=== PATIENT | male | born 1940 | race Caucasian/White ===

== ENCOUNTER 2016-05-13 14:34 | Outpatient (CLI) | payer MEDICARE, MEDICAID | END 2016-05-13 14:35 | disposition home or self-care (01) | DX: M51.36 Other intervertebral disc degeneration, lumbar region (principal); M41.86 Other forms of scoliosis, lumbar region ==

== ENCOUNTER 2016-05-20 08:00 | Outpatient (CLI) | payer MEDICARE, MEDICAID | END 2016-05-20 08:01 | disposition home or self-care (01) | DX: E78.2 Mixed hyperlipidemia (principal); I10 Essential (primary) hypertension; E66.01 Morbid (severe) obesity due to excess calories; J44.9 Chronic obstructive pulmonary disease, unspecified ==

== ENCOUNTER 2017-03-15 08:00 | Outpatient (CLI) | payer MEDICARE, MEDICAID ==
[2017-03-15 19:14] LABS: ALBUMIN 4.1 g/dL (3.2-5.5); ALBUMIN/GLOBULIN RATIO 1.4 (1.0-2.2); ALKALINE PHOSPHATASE 71 IU/L (42-121); ALT ALANINE AMINOTRANSFERASE 15 IU/L (10-60); AST ASPARTATE AMINOTRANSFERASE 17 IU/L (10-42); BILIRUBIN,TOTAL 0.7 mg/dL (0.2-1.0); BUN - BLOOD UREA NITROGEN 10 mg/dL (6-20); CALCIUM 8.7 mg/dL (8.5-10.3); CARBON DIOXIDE - CO2 30 mmol/L (21-32); CHLORIDE 105 mmol/L (101-111); CHOLESTEROL 143 mg/dL; GFR - MDRD 73 (>89); GLUCOSE 107 mg/dL (70-100); HDL CHOLESTEROL 47 mg/dL; LDL CHOLESTEROL,CALCULATED 83 mg/dL; LDL/HDL RATIO 1.8 (<3.6); SODIUM 141 mmol/L (135-145); TOTAL PROTEIN 7.1 g/dL (6.7-8.2); VLDL CHOLESTEROL 13 mg/dL
== END 2017-03-15 08:01 | disposition home or self-care (01) ==
LOC: LAB.N 08:00
PROVIDERS: ATTEND Family Medicine
DX: F17.210 Nicotine dependence, cigarettes, uncomplicated (principal); E78.2 Mixed hyperlipidemia; I10 Essential (primary) hypertension
CPT/HCPCS: 36415; 80053; 80061

== ENCOUNTER 2018-01-03 10:17 | Outpatient (CLI) | payer MEDICARE, MEDICAID ==
[2018-01-03 12:30] LABS: CALCIUM 8.7 mg/dL (8.5-10.3); CREATININE 1.2 mg/dL (0.6-1.2)
== END 2018-01-03 10:18 | disposition home or self-care (01) ==
LOC: LAB.N 10:17
PROVIDERS: ATTEND Family Medicine
DX: I10 Essential (primary) hypertension (principal)
CPT/HCPCS: 36415; 80048

== ENCOUNTER 2018-08-28 07:38 | Outpatient (CLI) | payer MEDICARE, MEDICAID ==
[2018-08-28 15:57] LABS: BASOPHILS % (AUTO) 0.6 %; EOSINOPHILS # (AUTO) 0.2 10^3/uL (0.0-0.7); EOSINOPHILS % (AUTO) 2.8 %; HGB - HEMOGLOBIN 14.9 g/dL (14.0-18.0); LYMPHOCYTES # (AUTO) 2.2 10^3/uL (1.5-3.5); LYMPHOCYTES % (AUTO) 33.9 %; MEAN CORPUSCULAR HEMOGLOBIN 31.9 pg (27.0-31.0); MEAN CORPUSCULAR HGB CONC 33.3 g/dL (32.0-36.0); MEAN CORPUSCULAR VOLUME 95.9 fL (80.0-94.0); MEAN PLATELET VOLUME 9.6 fL (7.4-11.4); MONOCYTES # (AUTO) 0.5 10^3/uL (0.0-1.0); MONOCYTES % (AUTO) 7.8 %; NEUTROPHILS # (AUTO) 3.5 10^3/uL (1.5-6.6); NEUTROPHILS % (AUTO) 54.9 %; PLT - PLATELET COUNT 129 10^3/uL (130-450); RED BLOOD COUNT 4.66 10^6/uL (4.70-6.10); RED CELL DISTRIBUTION WIDTH 14.8 % (12.0-15.0); WHITE BLOOD COUNT 6.4 x10^3/uL (4.8-10.8)
[2018-08-28 16:08] LABS: ALBUMIN 3.9 g/dL (3.2-5.5); ALBUMIN/GLOBULIN RATIO 1.2 (1.0-2.2); ALKALINE PHOSPHATASE 55 IU/L (42-121); ALT ALANINE AMINOTRANSFERASE 13 IU/L (10-60); AST ASPARTATE AMINOTRANSFERASE 13 IU/L (10-42); BILIRUBIN,TOTAL 0.9 mg/dL (0.2-1.0); BUN - BLOOD UREA NITROGEN 15 mg/dL (6-20); CALCIUM 8.4 mg/dL (8.5-10.3); CARBON DIOXIDE - CO2 26 mmol/L (21-32); CHLORIDE 106 mmol/L (101-111); CHOL/HDL RATIO 2.5 (<5.0); CHOLESTEROL 104 mg/dL; GFR - MDRD 73 (>89); GLUCOSE 111 mg/dL (70-100); HDL CHOLESTEROL 41 mg/dL; LDL CHOLESTEROL,CALCULATED 51 mg/dL; LDL/HDL RATIO 1.2 (<3.6); SODIUM 140 mmol/L (135-145); TOTAL PROTEIN 7.1 g/dL (6.7-8.2); VLDL CHOLESTEROL 12 mg/dL
== END 2018-08-28 07:39 | disposition home or self-care (01) ==
LOC: LAB.WCP 07:38
PROVIDERS: ATTEND Family Medicine
DX: I10 Essential (primary) hypertension (principal); E78.2 Mixed hyperlipidemia
CPT/HCPCS: 36415; 80053; 80061; 83721; 84443; 85025

== ENCOUNTER 2019-02-13 12:55 | Outpatient (CLI) | payer MEDICARE, MEDICAID ==
[2019-02-13 18:39] LABS: BASOPHILS # (AUTO) 0.1 10^3/uL (0.0-0.1); BASOPHILS % (AUTO) 0.8 %; EOSINOPHILS # (AUTO) 0.2 10^3/uL (0.0-0.7); EOSINOPHILS % (AUTO) 2.9 %; LYMPHOCYTES # (AUTO) 2.7 10^3/uL (1.5-3.5); LYMPHOCYTES % (AUTO) 35.5 %; MEAN CORPUSCULAR HEMOGLOBIN 31.7 pg (27.0-31.0); MEAN PLATELET VOLUME 11.6 fL (7.4-11.4); MONOCYTES # (AUTO) 0.6 10^3/uL (0.0-1.0); MONOCYTES % (AUTO) 8.2 %; NEUTROPHILS % (AUTO) 52.2 %; PLT - PLATELET COUNT 153 10^3/uL (130-450); RED BLOOD COUNT 5.05 10^6/uL (4.70-6.10); RED CELL DISTRIBUTION WIDTH 15.3 % (12.0-15.0); WHITE BLOOD COUNT 7.7 x10^3/uL (4.8-10.8)
[2019-02-13 19:00] LABS: ALBUMIN 4.2 g/dL (3.2-5.5); ALBUMIN/GLOBULIN RATIO 1.4 (1.0-2.2); BILIRUBIN,TOTAL 1.2 mg/dL (0.2-1.0); CALCIUM 8.6 mg/dL (8.5-10.3); CREATININE 1.2 mg/dL (0.6-1.2); TOTAL PROTEIN 7.3 g/dL (6.7-8.2)
== END 2019-02-13 23:59 | disposition home or self-care (01) ==
LOC: LAB.WCP 12:55
PROVIDERS: ATTEND Family Medicine
DX: I10 Essential (primary) hypertension (principal); J44.9 Chronic obstructive pulmonary disease, unspecified; G89.29 Other chronic pain; M54.5 Low back pain
CPT/HCPCS: 36415; 80053; 85025

== ENCOUNTER 2019-03-14 16:37 | Emergency (ER) | payer MEDICARE, MEDICAID ==
--- NOTE | 2019-03-14 17:33 | XRAY Report ---
Reason: shortness of breath Procedure Date: 03/14/2019 Accession Number: [id number] / [id number] Procedure: XR - Chest 2 View X-Ray CPT Code: 60039 Final Report FULL RESULT: EXAM: CHEST RADIOGRAPHY EXAM DATE: 03/14/2019 05:07 PM. CLINICAL HISTORY: Shortness of breath. COMPARISON: LUMBAR SPINE COMPLETE 05/13/2016 2:51 PM. TECHNIQUE: 2 views. FINDINGS: Lungs/Pleura: No consolidation, airspace disease, pleural effusion or pneumothorax. Hyperinflated lungs. Mediastinum: Heart and mediastinal contours are unremarkable. Other: Severe T12 compression fracture, age indeterminate. Mild anterior wedging of the vertebral bodies at multiple levels in the thoracic spine, appear chronic. IMPRESSION: Hyperinflated lungs. COPD could be present. No acute cardiopulmonary disease seen. New severe T12 compression fracture, age indeterminate. RADIA
--- NOTE | 2019-03-14 18:42 | ED Physician Documentation ---
History of Present Illness - Stated complaint Stated Complaint: SOA, CONGESTION - Chief complaint Chief Complaint: Resp - History obtained from History obtained from: Patient (78-year-old gentleman with COPD on Advair and Spiriva sprint presents with 1 week of productive cough, increasing shortness of breath. No pedal edema. The cough is productive of white thick sputum. No fevers.) Review of Systems Constitutional: denies: Fever, Chills Nose: reports: Rhinorrhea / runny nose, Congestion Throat: denies: Sore throat Cardiac: denies: Chest pain / pressure, Palpitations Respiratory: reports: Dyspnea, Cough. denies: Hemoptysis, Wheezing GI: denies: Abdominal Pain PD PAST MEDICAL HISTORY - Past Medical History Cardiovascular: Congestive heart failure, Hypertension, High cholesterol Respiratory: COPD, Emphysema, Pneumonia - Past Surgical History General: Hiatal hernia repair HEENT: Tonsil/Adenoidectomy - Present Medications Home Medications: Ambulatory Orders Medication Instructions Recorded Confirmed Albuterol [Ventolin Hfa] 1 puffs PO DAILY 12/17/14 12/17/14 Aspirin 81 mg PO DAILY 12/17/14 12/17/14 Baclofen 10 mg PO DAILY 12/17/14 12/17/14 Carvedilol [Coreg] 6.25 mg PO BID 12/17/14 12/17/14 Cephalexin [Keflex] 500 mg PO TID #20 capsule 12/17/14 Fluticasone/Salmeterol [Advair 12/17/14 12/17/14 100-50 Diskus] Ibuprofen 600 mg PO BID #15 tablet 12/17/14 Lisinopril [Zestril] 10 mg PO DAILY 12/17/14 12/17/14 Oxycodone HCl/Acetaminophen 1 each PO Q6H PRN #20 tablet 12/17/14 [Percocet 5-325 mg Tablet] Simvastatin [Zocor] 20 mg PO DAILY 12/17/14 12/17/14 Tiotropium [place] [Spiriva] 18 mcg PO DAILY 12/17/14 12/17/14 oxyCODONE/ACET 5/325 [Percocet 5 1 tab PO DAILY 12/17/14 12/17/14 mg/325 mg] Doxycycline Hyclate 100 mg PO BID #20 capsule 03/14/19 predniSONE [Deltasone] 20 mg PO [id number] #21 tab 03/14/19 - Allergies Allergies/Adverse Reactions: Allergies Allergy/AdvReac Type Severity Reaction Status Date / Time No Known Drug Allergies Allergy Verified 03/14/19 16:45 - Social History Does the pt smoke?: Yes Smoking Status: Current every day smoker Does the pt drink ETOH?: No Does the pt have substance abuse?: No PD ED PE NORMAL - Vitals Vital signs reviewed: Yes - General General: Alert and oriented X 3, No acute distress - HEENT HEENT: PERRL, EOMI - Neck Neck: Supple, no meningeal sign, No bony TTP - Cardiac Cardiac: RRR, No murmur - Respiratory Respiratory: Other (Wheezy and rhonchorous throughout but nonlabored) - Extremities Extremities: No edema, No calf tenderness / cord - Neuro Neuro: Alert and oriented X 3, Normal speech Results - Vitals Vitals: Vital Signs - 24 hr 03/14/19 03/14/19 03/14/19 16:45 18:53 19:09 Temperature 36.6 C Heart Rate 87 90 89 Respiratory 20 22 22 Rate Blood Pressure 157/95 H 151/99 H O2 Saturation 96 96 03/14/19 19:27 Temperature Heart Rate 92 Respiratory 20 Rate Blood Pressure O2 Saturation Oxygen O2 Source Room air - Rads (name of study) 2v chest Radiology: EMP read contemporaneously (Hyperinflated lungs with COPD, no acute disease, new T12 compression fracture) PD MEDICAL DECISION MAKING - ED course ED course: 78-year-old gentleman presents with parents COPD exacerbation. No evidence of CHF. He is administered a DuoNeb, prednisone, and doxycycline here. 78-year-old gentleman with COPD exacerbation, no evidence of other cardiac or pulmonary disease, feeling better after divided nebs and the steroids and doxycycline. No respiratory distress. No tachycardia. No hypoxemia. Departure - Departure Clinical Impression: COPD exacerbation Condition: Good Record reviewed to determine appropriate education?: Yes Instructions: COPD Dc, ED Smoking Cessation Prescriptions: Doxycycline Hyclate 100 mg PO BID #20 capsule predniSONE [Deltasone] 20 mg PO [id number] #21 tab Comments: On your x-ray besides evidence of COPD we also sized T12 compression fracture, unclear when this happened but you can talk with your doctor about it. Call your doctor to arrange a follow-up appointment, make the next available appointment. In the interim, return anytime if worse or if new symptoms develop.
[2019-03-14] MEDS ORDERED: IPRATROPIUM/ALBUTEROL 3 ML NEB INH STA (18:45)
[2019-03-14] MEDS ORDERED: DOXYCYCLINE 100 MG TABLET PO STA (18:45)
[2019-03-14] MEDS ORDERED: predniSONE 20 MG TABLET PO STA (18:45)
[2019-03-14] MEDS ORDERED: ALBUTEROL NEB 2.5 MG/3 ML INH STA ×2 (19:18→19:50)
[2019-03-14 20:04] VITALS: BP 115/83
== END 2019-03-14 20:24 | disposition home or self-care (01) ==
LOC: ED 16:37
DX: J44.1 Chronic obstructive pulmonary disease with (acute) exacerbation (principal); F17.200 Nicotine dependence, unspecified, uncomplicated; M48.54XA Collapsed vertebra, not elsewhere classified, thoracic region, initial encounter for fracture; I10 Essential (primary) hypertension; Z79.82 Long term (current) use of aspirin
CPT/HCPCS: 71046; 94640; 99284; A9270; J7512

== ENCOUNTER 2019-05-16 18:25 | Outpatient (CLI) | payer MEDICARE, MEDICAID | END 2019-05-16 18:26 | disposition short-term general hospital (02) | LOC: EMS 18:25 | PROVIDERS: ATTEND Surgery | DX: I21.4 Non-ST elevation (NSTEMI) myocardial infarction (principal) | CPT/HCPCS: A0425; A0426 ==

== ENCOUNTER 2019-05-29 13:45 | Outpatient (CLI) | payer MEDICARE, MEDICAID ==
[2019-05-29 18:35] LABS: BASOPHILS # (AUTO) 0.1 10^3/uL (0.0-0.1); BASOPHILS % (AUTO) 0.7 %; EOSINOPHILS # (AUTO) 0.2 10^3/uL (0.0-0.7); EOSINOPHILS % (AUTO) 3.3 %; HGB - HEMOGLOBIN 14.5 g/dL (14.0-18.0); LYMPHOCYTES # (AUTO) 1.6 10^3/uL (1.5-3.5); MEAN CORPUSCULAR HEMOGLOBIN 32.5 pg (27.0-31.0); MEAN CORPUSCULAR HGB CONC 32.6 g/dL (32.0-36.0); MEAN CORPUSCULAR VOLUME 99.8 fL (80.0-94.0); MEAN PLATELET VOLUME 11.7 fL (7.4-11.4); MONOCYTES # (AUTO) 0.6 10^3/uL (0.0-1.0); MONOCYTES % (AUTO) 8.3 %; NEUTROPHILS # (AUTO) 4.8 10^3/uL (1.5-6.6); NEUTROPHILS % (AUTO) 65.3 %; PLT - PLATELET COUNT 164 10^3/uL (130-450); RED BLOOD COUNT 4.46 10^6/uL (4.70-6.10); RED CELL DISTRIBUTION WIDTH 15.9 % (12.0-15.0); WHITE BLOOD COUNT 7.4 x10^3/uL (4.8-10.8)
[2019-05-29 18:46] LABS: ALBUMIN 3.8 g/dL (3.2-5.5); ALBUMIN/GLOBULIN RATIO 1.3 (1.0-2.2); BILIRUBIN,TOTAL 0.6 mg/dL (0.2-1.0); CALCIUM 8.6 mg/dL (8.5-10.3); TOTAL PROTEIN 6.7 g/dL (6.7-8.2)
== END 2019-05-29 23:59 | disposition home or self-care (01) ==
LOC: LAB.WCP 13:45
PROVIDERS: ATTEND Family Medicine
DX: I25.10 Atherosclerotic heart disease of native coronary artery without angina pectoris (principal); I48.91 Unspecified atrial fibrillation
CPT/HCPCS: 36415; 80053; 85025

== ENCOUNTER 2019-06-03 13:56 | Emergency (ER) | payer MEDICARE, MEDICAID ==
[2019-06-03 14:03] VITALS: BP 148/107
[2019-06-03] MEDS ORDERED: HYDROcod/ACETAM 5/325 MG TABLET PO STA (14:14)
[2019-06-03] MEDS ORDERED: GABAPENTIN 100 MG CAPSULE PO STA (14:15)
--- NOTE | 2019-06-03 14:17 | ED Physician Documentation ---
History of Present Illness - Stated complaint Stated Complaint: MALE - Chief complaint Chief Complaint: General - History obtained from History obtained from: Patient (Burning painful rash on the left thigh and groin for about a week. No fevers or chills.) Review of Systems Constitutional: denies: Fever, Chills GI: denies: Abdominal Pain, Nausea, Vomiting : denies: Dysuria, Frequency PD PAST MEDICAL HISTORY - Past Medical History Cardiovascular: Congestive heart failure, Hypertension, High cholesterol Respiratory: COPD, Emphysema, Pneumonia - Past Surgical History Past Surgical History: Yes General: Hiatal hernia repair Ortho: Hip replacement, Knee replacement, Arthroscopic surgery HEENT: Tonsil/Adenoidectomy - Present Medications Home Medications: Ambulatory Orders Medication Instructions Recorded Confirmed Albuterol [Ventolin Hfa] 1 puffs PO DAILY 12/17/14 12/17/14 Aspirin 81 mg PO DAILY 12/17/14 12/17/14 Baclofen 10 mg PO DAILY 12/17/14 12/17/14 Carvedilol [Coreg] 6.25 mg PO BID 12/17/14 12/17/14 Cephalexin [Keflex] 500 mg PO TID #20 capsule 12/17/14 Fluticasone/Salmeterol [Advair 12/17/14 12/17/14 100-50 Diskus] Ibuprofen 600 mg PO BID #15 tablet 12/17/14 Lisinopril [Zestril] 10 mg PO DAILY 12/17/14 12/17/14 Oxycodone HCl/Acetaminophen 1 each PO Q6H PRN #20 tablet 12/17/14 [Percocet 5-325 mg Tablet] Simvastatin [Zocor] 20 mg PO DAILY 12/17/14 12/17/14 Tiotropium [place] [Spiriva] 18 mcg PO DAILY 12/17/14 12/17/14 oxyCODONE/ACET 5/325 [Percocet 5 1 tab PO DAILY 12/17/14 12/17/14 mg/325 mg] Doxycycline Hyclate 100 mg PO BID #20 capsule 03/14/19 predniSONE [Deltasone] 20 mg PO [id number] #21 tab 03/14/19 Acyclovir 800 mg PO 5XD #50 tablet 06/03/19 Gabapentin [Neurontin] 300 mg PO TID #30 capsule 06/03/19 Hydrocodone/Acetaminophen 1 - 2 each PO Q6H PRN #14 tablet 06/03/19 [Hydrocodon-Acetaminophen 5-325] predniSONE [Deltasone] 20 mg PO [id number] #21 tab 06/03/19 - Allergies Allergies/Adverse Reactions: Allergies Allergy/AdvReac Type Severity Reaction Status Date / Time No Known Drug Allergies Allergy Verified 05/16/19 12:32 - Social History Does the pt smoke?: Yes Smoking Status: Current every day smoker Does the pt drink ETOH?: No Does the pt have substance abuse?: No PD ED PE NORMAL - Vitals Vital signs reviewed: Yes - General General: Alert and oriented X 3, No acute distress - Abdomen Abdomen: Soft, Non tender - Derm Derm: Other (He has herpes zoster on the anterior left thigh radiating towards the groin) - Neuro Neuro: Alert and oriented X 3, Normal speech Results - Vitals Vitals: Vital Signs - 24 hr 06/03/19 14:01 Temperature 36.8 C Heart Rate 93 Respiratory 16 Rate Blood Pressure 148/107 H O2 Saturation 99 Oxygen O2 Source Room air Departure - Departure Disposition: Home, Self Care Clinical Impression: Herpes zoster Qualifiers: Herpes zoster complications: without complications Qualified Code(s): B02.9 - Zoster without complications Condition: Good Record reviewed to determine appropriate education?: Yes Instructions: ED Shingles Prescriptions: Acyclovir 800 mg PO 5XD #50 tablet Gabapentin [Neurontin] 300 mg PO TID #30 capsule Hydrocodone/Acetaminophen [Hydrocodon-Acetaminophen 5-325] 1 - 2 each PO Q6H PRN #14 tablet PRN Reason: pain predniSONE [Deltasone] 20 mg PO [id number] #21 tab Comments: The gabapentin and hydrocodone should help with the burning and the pain. The acyclovir may help it go away faster and the steroids may help prevent recurrences of pain. You need to have your INR checked frequently while on these medications as they may make your warfarin levels go high. Plan the next INR check for Tuesday with your Dr. Soler. Do not drink or drive while taking narcotic pain medication. Note that many narcotic pain relievers also contain Tylenol/acetaminophen. Please ensure that your total dose of acetaminophen from all sources does not exceed 3 g (3000 mg) per day. You may get constipated while on this medication. Take a stool softener such as Colace twice a day while you are on it. Also add an [id number] laxative such as senna or MiraLAX on any day that you do not have a bowel movement. If you received a narcotic pain medication or sedative while in the emergency department, do not drive for the next 24 hours.
== END 2019-06-03 14:29 | disposition home or self-care (01) ==
LOC: ED 13:56
DX: B02.9 Zoster without complications (principal); I10 Essential (primary) hypertension; F17.200 Nicotine dependence, unspecified, uncomplicated
CPT/HCPCS: 99283; A9270

== ENCOUNTER 2019-06-13 08:00 | Outpatient (CLI) | payer MEDICARE, MEDICAID | END 2019-06-13 23:59 | disposition home or self-care (01) | LOC: LAB.WCP 08:00 | PROVIDERS: ATTEND Family Medicine | DX: I48.91 Unspecified atrial fibrillation (principal) ==

== ENCOUNTER 2019-06-13 08:00 | Outpatient (CLI) | payer MEDICARE, MEDICAID | END 2019-06-13 23:59 | disposition home or self-care (01) | LOC: LAB.WCP 08:00 | PROVIDERS: ATTEND Family Medicine | DX: I48.91 Unspecified atrial fibrillation (principal) ==

== ENCOUNTER 2019-06-27 08:00 | Outpatient (CLI) | payer MEDICARE, MEDICAID ==
[2019-06-27 12:21] LABS: BASOPHILS % (AUTO) 0.5 %; EOSINOPHILS # (AUTO) 0.2 10^3/uL (0.0-0.7); EOSINOPHILS % (AUTO) 3.1 %; HGB - HEMOGLOBIN 15.5 g/dL (14.0-18.0); LYMPHOCYTES # (AUTO) 2.2 10^3/uL (1.5-3.5); MEAN CORPUSCULAR HEMOGLOBIN 31.3 pg (27.0-31.0); MEAN CORPUSCULAR HGB CONC 31.7 g/dL (32.0-36.0); MEAN CORPUSCULAR VOLUME 98.6 fL (80.0-94.0); MEAN PLATELET VOLUME 11.3 fL (7.4-11.4); MONOCYTES # (AUTO) 0.6 10^3/uL (0.0-1.0); MONOCYTES % (AUTO) 7.5 %; NEUTROPHILS # (AUTO) 4.7 10^3/uL (1.5-6.6); NEUTROPHILS % (AUTO) 60.6 %; PLT - PLATELET COUNT 151 10^3/uL (130-450); RED BLOOD COUNT 4.96 10^6/uL (4.70-6.10); RED CELL DISTRIBUTION WIDTH 15.8 % (12.0-15.0); WHITE BLOOD COUNT 7.7 x10^3/uL (4.8-10.8)
[2019-06-27 12:35] LABS: ALBUMIN 4.2 g/dL (3.2-5.5); ALBUMIN/GLOBULIN RATIO 1.3 (1.0-2.2); ALKALINE PHOSPHATASE 57 IU/L (42-121); ALT ALANINE AMINOTRANSFERASE 15 IU/L (10-60); AST ASPARTATE AMINOTRANSFERASE 16 IU/L (10-42); BILIRUBIN,TOTAL 1.4 mg/dL (0.2-1.0); BUN - BLOOD UREA NITROGEN 28 mg/dL (6-20); CALCIUM 8.8 mg/dL (8.5-10.3); CARBON DIOXIDE - CO2 25 mmol/L (21-32); CHLORIDE 110 mmol/L (101-111); CHOL/HDL RATIO 2.3 (<5.0); CHOLESTEROL 75 mg/dL; GLUCOSE 113 mg/dL (70-100); HDL CHOLESTEROL 32 mg/dL; LDL CHOLESTEROL,CALCULATED 32 mg/dL; SODIUM 141 mmol/L (135-145); TOTAL PROTEIN 7.4 g/dL (6.7-8.2); VLDL CHOLESTEROL 11 mg/dL
== END 2019-06-27 23:59 | disposition home or self-care (01) ==
LOC: LAB.WCP 08:00
PROVIDERS: ATTEND Family Medicine
DX: E78.2 Mixed hyperlipidemia (principal); I10 Essential (primary) hypertension; E66.01 Morbid (severe) obesity due to excess calories; I48.91 Unspecified atrial fibrillation; Z79.01 Long term (current) use of anticoagulants
CPT/HCPCS: 36415; 80053; 80061; 83721; 84443; 85025

== ENCOUNTER 2019-07-26 08:00 | Outpatient (CLI) | payer MEDICARE, MEDICAID | END 2019-07-26 23:59 | disposition home or self-care (01) | LOC: LAB.WCP 08:00 | PROVIDERS: ATTEND Family Medicine | DX: I48.91 Unspecified atrial fibrillation (principal); Z79.01 Long term (current) use of anticoagulants ==

== ENCOUNTER → 2019-07-27 | Outpatient (CLI) | payer MEDICARE, MEDICAID ==
--- NOTE | 2019-07-31 04:43 | XRAY Report ---
Reason: RIGHT HIP PAIN Procedure Date: 07/27/2019 Accession Number: [id number] / [id number] Procedure: WCP - Hip 1 View RT CPT Code: Final Report FULL RESULT: EXAM: RIGHT HIP RADIOGRAPHY EXAM DATE: 07/27/2019 03:42 PM. CLINICAL HISTORY: RIGHT HIP PAIN. COMPARISON: LUMBAR SPINE COMPLETE 05/13/2016 2:51 PM. TECHNIQUE: 2 views. FINDINGS: Bones: Postoperative changes from a total left hip arthroplasty are seen. No periprosthetic lucency is seen to suggest loosening. No acute fracture. Joints: Right hip joint space narrowing with marginal osteophyte formation. No dislocation. Soft Tissues: Normal. No soft tissue swelling. IMPRESSION: Mild right hip osteoarthritis. RADIA
== END ==
LOC: DI.WCP 15:42
PROVIDERS: ATTEND Family Medicine
DX: M16.11 Unilateral primary osteoarthritis, right hip (principal)

== ENCOUNTER 2019-08-17 08:00 | Outpatient (CLI) | payer MEDICARE, MEDICAID | END 2019-08-17 23:59 | disposition home or self-care (01) | LOC: LAB.WCP 08:00 | PROVIDERS: ATTEND Family Medicine | DX: I48.91 Unspecified atrial fibrillation (principal); Z79.01 Long term (current) use of anticoagulants ==

== ENCOUNTER 2019-08-17 13:37 | Outpatient (CLI) | payer MEDICARE, MEDICAID ==
--- NOTE | 2019-08-17 14:29 | XRAY Report ---
Reason: KNEE PAIN, RIGHT Procedure Date: 08/17/2019 Accession Number: [id number] / [id number] Procedure: XR - Knee 3 View RT CPT Code: Final Report FULL RESULT: PROCEDURE: Knee 3 View RT INDICATIONS: KNEE PAIN, RIGHT TECHNIQUE: 3 views of the right knee(s) were acquired. COMPARISON: None. FINDINGS: Bones: Patient is status post right total knee arthroplasty. Alignment of right knee is anatomic. No gross hardware loosening or failure. No fractures or dislocations. No suspicious bony lesions. Soft tissues: No joint effusion. No suspicious soft tissue calcifications. IMPRESSION: Anatomic right knee alignment. No gross hardware complication. No fracture or dislocation. Reviewed by: Dante Jeff MD on 08/17/2019 2:28 PM PDT Approved by: Dante Jeff MD on 08/17/2019 2:28 PM PDT Station ID: [id number]
== END 2019-08-17 13:38 | disposition home or self-care (01) ==
LOC: DI 13:37
PROVIDERS: ATTEND Family Medicine
DX: M25.561 Pain in right knee (principal); I48.91 Unspecified atrial fibrillation; Z96.651 Presence of right artificial knee joint; Z79.01 Long term (current) use of anticoagulants

== ENCOUNTER 2019-09-03 08:00 | Outpatient (CLI) | payer MEDICARE, MEDICAID | END 2019-09-03 23:59 | disposition home or self-care (01) | LOC: LAB.WCP 08:00 | PROVIDERS: ATTEND Family Medicine | DX: I48.91 Unspecified atrial fibrillation (principal); Z79.01 Long term (current) use of anticoagulants ==

== ENCOUNTER 2019-09-07 11:32 | Outpatient (CLI) | payer MEDICARE, MEDICAID ==
[2019-09-07 18:33] LABS: ALBUMIN/GLOBULIN RATIO 1.2 (1.0-2.2); BILIRUBIN,TOTAL 0.7 mg/dL (0.2-1.0); CALCIUM 8.8 mg/dL (8.5-10.3); CREATININE 1.2 mg/dL (0.6-1.2); MAGNESIUM 2.4 mg/dL (1.7-2.8); TOTAL PROTEIN 7.3 g/dL (6.7-8.2)
[2019-09-11 19:59] LABS: HDL LARGE 4395 nmol/L (>6729); LDL PARTICLE NUMBER 936 nmol/L (<1138); LDL PATTERN A Pattern (A); LDL PEAK SIZE 219.3 Angstrom (>222.9); LDL SMALL 160 nmol/L (<142)
== END 2019-09-07 23:59 | disposition home or self-care (01) ==
LOC: LAB.WCP 11:32
PROVIDERS: ATTEND Specialist
DX: I10 Essential (primary) hypertension (principal); E78.2 Mixed hyperlipidemia
CPT/HCPCS: 36415; 80053; 80061; 81599; 83704; 83735

== ENCOUNTER 2019-09-17 08:00 | Outpatient (CLI) | payer MEDICARE, MEDICAID | END 2019-09-17 23:59 | disposition home or self-care (01) | LOC: LAB.WCP 08:00 | PROVIDERS: ATTEND Family Medicine | DX: I48.91 Unspecified atrial fibrillation (principal); Z79.01 Long term (current) use of anticoagulants ==

== ENCOUNTER 2019-09-24 08:00 | Outpatient (CLI) | payer MEDICARE, MEDICAID | END 2019-09-24 23:59 | disposition home or self-care (01) | LOC: LAB.WCP 08:00 | PROVIDERS: ATTEND Family Medicine | DX: I48.91 Unspecified atrial fibrillation (principal); Z79.01 Long term (current) use of anticoagulants ==

== ENCOUNTER 2019-10-01 08:00 | Outpatient (CLI) | payer MEDICARE, MEDICAID | END 2019-10-01 23:59 | disposition home or self-care (01) | LOC: LAB.WCP 08:00 | PROVIDERS: ATTEND Family Medicine | DX: I48.91 Unspecified atrial fibrillation (principal); Z79.01 Long term (current) use of anticoagulants ==

== ENCOUNTER 2019-10-16 08:00 | Outpatient (CLI) | payer MEDICARE, MEDICAID | END 2019-10-16 23:59 | disposition home or self-care (01) | LOC: LAB.WCP 08:00 | PROVIDERS: ATTEND Family Medicine | DX: I48.91 Unspecified atrial fibrillation (principal); Z79.01 Long term (current) use of anticoagulants ==

== ENCOUNTER 2019-11-06 08:00 | Outpatient (CLI) | payer MEDICARE, MEDICAID | END 2019-11-06 23:59 | disposition home or self-care (01) | LOC: LAB.WCP 08:00 | PROVIDERS: ATTEND Physician Assistant Medical | DX: I48.91 Unspecified atrial fibrillation (principal); Z79.01 Long term (current) use of anticoagulants ==

== ENCOUNTER 2019-11-21 08:00 | Outpatient (CLI) | payer MEDICARE, MEDICAID | END 2019-11-21 23:59 | disposition home or self-care (01) | LOC: LAB.WCP 08:00 | PROVIDERS: ATTEND Family Medicine | DX: I48.91 Unspecified atrial fibrillation (principal); Z79.01 Long term (current) use of anticoagulants ==

== ENCOUNTER 2019-12-12 08:00 | Outpatient (CLI) | payer MEDICARE, MEDICAID | END 2019-12-12 23:59 | disposition home or self-care (01) | LOC: LAB.WCP 08:00 | PROVIDERS: ATTEND Family Medicine | DX: Z79.01 Long term (current) use of anticoagulants (principal) ==

== ENCOUNTER 2019-12-26 08:00 | Outpatient (CLI) | payer MEDICARE, MEDICAID | END 2019-12-26 23:59 | disposition home or self-care (01) | LOC: LAB.WCP 08:00 | PROVIDERS: ATTEND Family Medicine | DX: Z79.01 Long term (current) use of anticoagulants (principal) ==

== ENCOUNTER 2020-01-09 08:00 | Outpatient (CLI) | payer MEDICARE, MEDICAID | END 2020-01-09 23:59 | disposition home or self-care (01) | LOC: LAB.WCP 08:00 | PROVIDERS: ATTEND Family Medicine | DX: Z79.01 Long term (current) use of anticoagulants (principal) ==

== ENCOUNTER 2020-01-23 08:00 | Outpatient (CLI) | payer MEDICARE, MEDICAID | END 2020-01-23 23:59 | disposition home or self-care (01) | LOC: LAB.WCP 08:00 | PROVIDERS: ATTEND Internal Medicine | DX: Z79.01 Long term (current) use of anticoagulants (principal) ==

== ENCOUNTER 2020-02-18 13:35 | Outpatient (CLI) | payer MEDICARE, MEDICAID ==
[2020-02-18 18:39] LABS: BASOPHILS % (AUTO) 0.5 %; EOSINOPHILS # (AUTO) 0.2 10^3/uL (0.0-0.7); EOSINOPHILS % (AUTO) 2.1 %; HGB - HEMOGLOBIN 14.8 g/dL (14.0-18.0); LYMPHOCYTES % (AUTO) 26.8 %; MEAN CORPUSCULAR HEMOGLOBIN 31.3 pg (27.0-31.0); MEAN CORPUSCULAR HGB CONC 31.6 g/dL (32.0-36.0); MEAN CORPUSCULAR VOLUME 98.9 fL (80.0-94.0); MEAN PLATELET VOLUME 11.6 fL (7.4-11.4); MONOCYTES # (AUTO) 0.6 10^3/uL (0.0-1.0); MONOCYTES % (AUTO) 8.4 %; NEUTROPHILS # (AUTO) 4.7 10^3/uL (1.5-6.6); NEUTROPHILS % (AUTO) 61.9 %; PLT - PLATELET COUNT 168 10^3/uL (130-450); RED BLOOD COUNT 4.73 10^6/uL (4.70-6.10); RED CELL DISTRIBUTION WIDTH 15.1 % (12.0-15.0); WHITE BLOOD COUNT 7.5 x10^3/uL (4.8-10.8)
[2020-02-18 19:05] LABS: ALBUMIN 4.2 g/dL (3.2-5.5); ALBUMIN/GLOBULIN RATIO 1.3 (1.0-2.2); ALKALINE PHOSPHATASE 60 IU/L (42-121); ALT ALANINE AMINOTRANSFERASE 15 IU/L (10-60); AST ASPARTATE AMINOTRANSFERASE 16 IU/L (10-42); BILIRUBIN,TOTAL 1.1 mg/dL (0.2-1.0); BUN - BLOOD UREA NITROGEN 18 mg/dL (6-20); CALCIUM 8.9 mg/dL (8.5-10.3); CARBON DIOXIDE - CO2 28 mmol/L (21-32); CHLORIDE 103 mmol/L (101-111); CHOL/HDL RATIO 2.4 (<5.0); CHOLESTEROL 97 mg/dL; CREATININE 1.3 mg/dL (0.6-1.2); GLUCOSE 91 mg/dL (70-100); HDL CHOLESTEROL 40 mg/dL; LDL CHOLESTEROL,CALCULATED 38 mg/dL; SODIUM 139 mmol/L (135-145); TOTAL PROTEIN 7.4 g/dL (6.7-8.2); VLDL CHOLESTEROL 19 mg/dL
== END 2020-02-18 13:36 | disposition home or self-care (01) ==
LOC: LAB.N 13:35
PROVIDERS: ATTEND Internal Medicine
DX: I10 Essential (primary) hypertension (principal); R22.1 Localized swelling, mass and lump, neck
CPT/HCPCS: 36415; 80053; 80061; 83615; 83721; 84443; 85025

== ENCOUNTER 2020-02-27 08:00 | Outpatient (CLI) | payer MEDICARE, MEDICAID | END 2020-02-27 23:59 | disposition home or self-care (01) | LOC: LAB.WCP 08:00 | PROVIDERS: ATTEND Internal Medicine | DX: Z79.01 Long term (current) use of anticoagulants (principal) ==

== ENCOUNTER 2020-03-09 10:00 | Outpatient (CLI) | payer MEDICARE, MEDICAID ==
[2020-03-09] MEDS ORDERED: IOVERSOL 320 100 ML VIAL IVP ONE ×2 (10:13→11:00)
--- NOTE | 2020-03-09 13:19 | CT Report ---
PROCEDURE: SOFT TISSUE NECK W INDICATIONS: NECK SWELLING, MASS, LUMP CONTRAST: IV CONTRAST: Isovue 370 ml: 100 PO CONTRAST: *NO PO CONTRAST TECHNIQUE: After the administration of intravenous contrast, 3.0 mm axial sections acquired from the sella to th e aortic arch. Additional oblique axial 3.0 mm sections acquired through the pharynx. 3 mm thick co nancy reformats were generated. For radiation dose reduction, the following was used: automated exp osure control, adjustment of mA and/or kV according to patient size. COMPARISON: None. FINDINGS: Image quality: Excellent. Lymph nodes: No enlarged lymph nodes seen throughout the neck. Vessels: Visualized vasculature appears patent. Neck spaces: The oropharynx, nasopharynx, and pharynx demonstrate no mucosal lesions. The vocal cor ds, false vocal cords, pyriform sinuses, epiglottis, vallecula, and tongue base all appear normal. A fatty mass abuts the anterior aspect of the superior right sternocleidomastoid musculature within the right parotid space which measures 5.0 x 3.6 cm. This displaces the sternocleidomastoid posteriorly and is likely correlated as palpated by the patient. There is no enhancing soft tissue component. Gla nds: The parotid and submandibular glands appear normal. The thyroid is normal in size. Miscellaneous: Visualized brain and orbits appear normal. Lung apices appear clear. Superficial so ft tissues appear normal. Bones: No suspicious bony lesions. Visualized sinuses and mastoids appear unremarkable. IMPRESSION: 1. 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 There is no enhancing soft ti ssue component present. Please note, the very rare liposarcoma cannot be excluded from the differenti al diagnosis on imaging alone. If there is rapid growth of this lesion, liposarcoma should be conside red in the differential diagnosis. Please correlate with patient history. Reviewed by: Vivienne Perdomo MD on 03/09/2020 12:18 PM [facility] Approved by: Vivienne Perdomo MD on 03/09/2020 12:18 PM [facility] Station ID: [id number]
== END 2020-03-09 10:01 | disposition home or self-care (01) ==
LOC: DI 10:00
PROVIDERS: ATTEND Internal Medicine
DX: R22.1 Localized swelling, mass and lump, neck (principal); D17.0 Benign lipomatous neoplasm of skin and subcutaneous tissue of head, face and neck
CPT/HCPCS: 70491; Q9967

== ENCOUNTER 2020-03-12 08:00 | Outpatient (CLI) | payer MEDICARE, MEDICAID | END 2020-03-12 23:59 | disposition home or self-care (01) | LOC: LAB.WCP 08:00 | PROVIDERS: ATTEND Internal Medicine | DX: Z79.01 Long term (current) use of anticoagulants (principal) ==

== ENCOUNTER 2020-04-04 08:00 | Outpatient (CLI) | payer MEDICARE, MEDICAID | END 2020-04-04 23:59 | disposition home or self-care (01) | LOC: LAB.WCP 08:00 | PROVIDERS: ATTEND Internal Medicine | DX: Z79.01 Long term (current) use of anticoagulants (principal) ==

== ENCOUNTER 2020-05-05 08:00 | Outpatient (CLI) | payer MEDICARE, MEDICAID | END 2020-05-05 23:59 | disposition home or self-care (01) | LOC: LAB.WCP 08:00 | PROVIDERS: ATTEND Internal Medicine | DX: Z79.01 Long term (current) use of anticoagulants (principal); I48.91 Unspecified atrial fibrillation ==

== ENCOUNTER 2020-05-30 08:00 | Outpatient (CLI) | payer MEDICARE, MEDICAID | END 2020-05-30 23:59 | disposition home or self-care (01) | LOC: LAB.WCP 08:00 | PROVIDERS: ATTEND Internal Medicine | DX: Z79.01 Long term (current) use of anticoagulants (principal); I48.91 Unspecified atrial fibrillation ==

== ENCOUNTER 2020-06-16 08:00 | Outpatient (CLI) | payer MEDICARE, MEDICAID | END 2020-06-16 23:59 | disposition home or self-care (01) | LOC: LAB.WCP 08:00 | PROVIDERS: ATTEND Internal Medicine | DX: Z79.01 Long term (current) use of anticoagulants (principal); I48.91 Unspecified atrial fibrillation ==

== ENCOUNTER 2020-06-30 12:07 | Outpatient (CLI) | payer MEDICARE, MEDICAID ==
--- NOTE | 2020-06-30 15:26 | XRAY Report ---
PROCEDURE: Knee 3 View RT INDICATIONS: BURSITIS-HIP RT,ILIOTIBIAL BAND SYNDROME RT LEG TECHNIQUE: 3 views of the right knee(s) were acquired. COMPARISON: X-ray knee 08/17/2019 FINDINGS: Bones: No fractures or dislocations. No suspicious bony lesions. Knee arthroplasty is present. Jairo dware is intact without evidence of periprosthetic loosening or fracture. Soft tissues: Minimal joint effusion. No suspicious soft tissue calcifications. IMPRESSION: Minimal effusion. No visualized acute fracture or dislocation. However, occult injury ca nnot be excluded. Recommend short interval imaging follow-up in 7-10 days as clinically indicated for additional evaluation. Reviewed by: Jolie Velarde MD on 06/30/2020 3:25 PM PDT Approved by: Jolie Velarde MD on 06/30/2020 3:25 PM PDT Station ID: [id number]
--- NOTE | 2020-06-30 15:26 | XRAY Report ---
PROCEDURE: Hip w/Pelvis 2-3V RT INDICATIONS: BURSITIS-HIP RT,ILIOTIBIAL BAND SYNDROME RT LEG TECHNIQUE: AP pelvis with lateral view(s) of the right hip(s). COMPARISON: CT abdomen pelvis 12/17/2014 FINDINGS: Bones: No fractures or dislocations. Pelvic ring appears intact. No suspicious bony lesions. Left hip arthroplasty is present. Hardware is intact without evidence of periprosthetic lucency or hardwa re fracture. There is moderate to severe narrowing of the right hip joint with subchondral sclerosis. Degenerative changes are present within the lower lumbar spine. Soft tissues: The visualized bowel gas pattern is normal. No suspicious soft tissue calcifications. IMPRESSION: 1. Moderate to severe arthritic changes within the right hip as above. Reviewed by: Jolie Velarde MD on 06/30/2020 3:24 PM PDT Approved by: Jolie Velarde MD on 06/30/2020 3:24 PM PDT Station ID: [id number]
== END 2020-06-30 12:08 | disposition home or self-care (01) ==
LOC: DI 12:07
PROVIDERS: ATTEND Internal Medicine
DX: M16.11 Unilateral primary osteoarthritis, right hip (principal); M25.461 Effusion, right knee

== ENCOUNTER 2020-07-11 08:00 | Outpatient (CLI) | payer MEDICARE, MEDICAID | END 2020-07-11 23:59 | disposition home or self-care (01) | LOC: LAB.WCP 08:00 | PROVIDERS: ATTEND Internal Medicine | DX: I48.91 Unspecified atrial fibrillation (principal); Z79.01 Long term (current) use of anticoagulants ==

== ENCOUNTER 2020-08-08 08:00 | Outpatient (CLI) | payer MEDICARE, MEDICAID | END 2020-08-08 23:59 | disposition home or self-care (01) | LOC: LAB.WCP 08:00 | PROVIDERS: ATTEND Internal Medicine | DX: I48.91 Unspecified atrial fibrillation (principal); Z79.01 Long term (current) use of anticoagulants ==

== ENCOUNTER 2020-09-03 10:28 | Outpatient (CLI) | payer MEDICARE, MEDICAID ==
[2020-09-03] MEDS ORDERED: ROPIVACAINE 0.5% PF 20 ML AMPULE ONE (10:42)
[2020-09-03] MEDS ORDERED: BUFFERED LIDOCAINE 10 ML SYRINGE ONE (10:42)
[2020-09-03] MEDS ORDERED: IOTHALAMATE MEGLUMINE 50 ML VIAL ONE (10:42)
[2020-09-03] MEDS ORDERED: TRIAMCINOLONE 40 MG/ML VIAL ONE (10:43)
[2020-09-03] MEDS ORDERED: IOTHALAMATE MEGLUMINE 50 ML VIAL IVP ONE (12:50)
[2020-09-03] MEDS ORDERED: BUFFERED LIDOCAINE 10 ML SYRINGE IU ONE (12:53)
[2020-09-03] MEDS ORDERED: ROPIVACAINE 0.5% PF 20 ML AMPULE EP ONE (12:53)
[2020-09-03] MEDS ORDERED: TRIAMCINOLONE 40 MG/ML VIAL IM ONE (12:54)
--- NOTE | 2020-09-03 12:58 | XRAY Report ---
PROCEDURE: Inj/Aspiration Major Joint INDICATIONS: RIGHT HIP ARTHRITIS CONTRAST: CONTRAST: CONRAY FLUORO TIME: FLUORO TIME: 0.9 MIN and NUMBER IMAGES: 2 TECHNIQUE: The indications, alternatives, benefits, risks, and complications of the procedure were explained to the patient. Written informed consent was obtained and placed in the chart. The patient was placed in an appropriate position on the fluoroscopy table, and a site was chosen for percutaneous access un jamel fluoroscopic guidance. Local anesthetic was administered using a 1% lidocaine solution. A hypod ermic or spinal needle was then used to access the symptomatic joint. Intra-articular location of th e needle tip was confirmed by injecting a small amount of contrast, followed by steroid administratio n. The needle was then withdrawn, and a bandage applied to the puncture site. FINDINGS: Joint injected: Right hip joint Medications injected: 6 mL of 40 mg/mL Kenalog and 0.5% Ropivacaine mixture. Complications: None. IMPRESSION: Successful fluoroscopically guided administration of steroid and anaesthetic solution into the right hip joint. Reviewed by: Dmitry Del Rio MD on 09/03/2020 12:57 PM PDT Approved by: Dmitry Del Rio MD on 09/03/2020 12:57 PM PDT Station ID: [id number]
== END 2020-09-03 10:29 | disposition home or self-care (01) ==
LOC: DI 10:28
PROVIDERS: ATTEND Orthopaedic Surgery
DX: M12.851 Other specific arthropathies, not elsewhere classified, right hip (principal)
CPT/HCPCS: 20610; 77002; Q9961

== ENCOUNTER 2020-09-08 12:00 | Outpatient (CLI) | payer MEDICARE, MEDICAID | END 2020-09-08 12:01 | disposition home or self-care (01) | LOC: LAB 12:00 | PROVIDERS: ATTEND Internal Medicine | DX: I48.91 Unspecified atrial fibrillation (principal); Z79.01 Long term (current) use of anticoagulants | CPT/HCPCS: 36416; 85610 ==

== ENCOUNTER 2020-10-08 08:00 | Outpatient (CLI) | payer MEDICARE, MEDICAID | END 2020-10-08 23:59 | disposition home or self-care (01) | LOC: LAB.WCP 08:00 | PROVIDERS: ATTEND Internal Medicine | DX: I48.91 Unspecified atrial fibrillation (principal); Z79.01 Long term (current) use of anticoagulants ==

== ENCOUNTER 2020-10-22 08:00 | Outpatient (CLI) | payer MEDICARE, MEDICAID | END 2020-10-22 23:59 | disposition home or self-care (01) | LOC: LAB.WCP 08:00 | PROVIDERS: ATTEND Internal Medicine | DX: I48.91 Unspecified atrial fibrillation (principal); Z79.01 Long term (current) use of anticoagulants ==

== ENCOUNTER 2020-11-28 08:00 | Outpatient (CLI) | payer MEDICARE, MEDICAID | END 2020-11-28 23:59 | disposition home or self-care (01) | LOC: LAB.WCP 08:00 | PROVIDERS: ATTEND Internal Medicine | DX: Z79.01 Long term (current) use of anticoagulants (principal); I48.91 Unspecified atrial fibrillation ==

== ENCOUNTER 2020-12-26 08:00 | Outpatient (CLI) | payer MEDICARE, MEDICAID | END 2020-12-26 23:59 | disposition home or self-care (01) | LOC: LAB.N 08:00 | PROVIDERS: ATTEND Internal Medicine | DX: Z79.01 Long term (current) use of anticoagulants (principal); I48.91 Unspecified atrial fibrillation ==

== ENCOUNTER 2021-04-09 08:00 | Outpatient (CLI) | payer MEDICARE, MEDICAID ==
[2021-04-09 12:12] LABS: BASOPHILS # (AUTO) 0.1 10^3/uL (0.0-0.1); BASOPHILS % (AUTO) 0.6 %; EOSINOPHILS # (AUTO) 0.2 10^3/uL (0.0-0.7); EOSINOPHILS % (AUTO) 2.7 %; HCT - HEMATOCRIT 46.8 % (42.0-52.0); LYMPHOCYTES # (AUTO) 1.6 10^3/uL (1.5-3.5); LYMPHOCYTES % (AUTO) 19.9 %; MEAN CORPUSCULAR HEMOGLOBIN 31.1 pg (27.0-31.0); MEAN CORPUSCULAR HGB CONC 32.1 g/dL (32.0-36.0); MEAN CORPUSCULAR VOLUME 97.1 fL (80.0-94.0); MEAN PLATELET VOLUME 11.3 fL (7.4-11.4); MONOCYTES # (AUTO) 0.8 10^3/uL (0.0-1.0); MONOCYTES % (AUTO) 9.7 %; NEUTROPHILS # (AUTO) 5.5 10^3/uL (1.5-6.6); NEUTROPHILS % (AUTO) 66.7 %; PLT - PLATELET COUNT 152 10^3/uL (130-450); RED BLOOD COUNT 4.82 10^6/uL (4.70-6.10); WHITE BLOOD COUNT 8.2 x10^3/uL (4.8-10.8)
[2021-04-09 12:35] LABS: THYROID STIMULATING HORMONE 2.23 uIU/mL (0.34-5.60)
[2021-04-09 12:37] LABS: ALBUMIN 3.6 g/dL (3.2-5.5); ALKALINE PHOSPHATASE 79 IU/L (42-121); ALT ALANINE AMINOTRANSFERASE 14 IU/L (10-60); AST ASPARTATE AMINOTRANSFERASE 13 IU/L (10-42); BILIRUBIN,TOTAL 1.1 mg/dL (0.2-1.0); BUN - BLOOD UREA NITROGEN 17 mg/dL (6-20); CALCIUM 8.4 mg/dL (8.5-10.3); CARBON DIOXIDE - CO2 28 mmol/L (21-32); CHLORIDE 102 mmol/L (101-111); CHOL/HDL RATIO 3.4 (<5.0); CHOLESTEROL 129 mg/dL; CREATININE 1.1 mg/dL (0.6-1.2); GFR - MDRD 65 (>89); GLUCOSE 121 mg/dL (70-100); HDL CHOLESTEROL 38 mg/dL; LDL CHOLESTEROL,CALCULATED 79 mg/dL; LDL/HDL RATIO 2.1 (<3.6); POTASSIUM 4.3 mmol/L (3.5-5.0); SODIUM 139 mmol/L (135-145); TOTAL PROTEIN 7.3 g/dL (6.7-8.2); TRIGLYCERIDES 61 mg/dL; VLDL CHOLESTEROL 12 mg/dL
== END 2021-04-09 23:59 | disposition home or self-care (01) ==
LOC: LAB.WCP 08:00
PROVIDERS: ATTEND Internal Medicine
DX: I25.10 Atherosclerotic heart disease of native coronary artery without angina pectoris (principal); E78.2 Mixed hyperlipidemia; I48.91 Unspecified atrial fibrillation; Z79.01 Long term (current) use of anticoagulants
CPT/HCPCS: 36415; 80053; 80061; 83721; 84443; 85025

== ENCOUNTER 2021-04-27 08:00 | Outpatient (CLI) | payer MEDICARE, MEDICAID | END 2021-04-27 23:59 | disposition home or self-care (01) | LOC: LAB.N 08:00 | PROVIDERS: ATTEND Internal Medicine | DX: I48.91 Unspecified atrial fibrillation (principal); Z79.01 Long term (current) use of anticoagulants ==

== ENCOUNTER 2021-04-29 11:38 | Outpatient (CLI) | payer MEDICARE, MEDICAID ==
[2021-04-29 17:57] LABS: ALBUMIN 3.9 g/dL (3.2-5.5); ALBUMIN/GLOBULIN RATIO 1.1 (1.0-2.2); BILIRUBIN,TOTAL 0.8 mg/dL (0.2-1.0); CALCIUM 8.8 mg/dL (8.5-10.3); CREATININE 1.2 mg/dL (0.6-1.2); MAGNESIUM 2.4 mg/dL (1.7-2.8); POTASSIUM 4.7 mmol/L (3.5-5.0); TOTAL PROTEIN 7.5 g/dL (6.7-8.2)
== END 2021-04-29 11:39 | disposition home or self-care (01) ==
LOC: LAB.N 11:38
PROVIDERS: ATTEND Specialist
DX: E78.2 Mixed hyperlipidemia (principal); I48.19 Other persistent atrial fibrillation
CPT/HCPCS: 36415; 80053; 83704; 83735

== ENCOUNTER 2021-06-29 08:00 | Outpatient (CLI) | payer MEDICARE, MEDICAID | END 2021-06-29 23:59 | disposition home or self-care (01) | LOC: LAB.N 08:00 | PROVIDERS: ATTEND Internal Medicine | DX: I48.91 Unspecified atrial fibrillation (principal); Z79.01 Long term (current) use of anticoagulants ==

== ENCOUNTER 2021-07-27 08:00 | Outpatient (CLI) | payer MEDICARE, MEDICAID | END 2021-07-27 23:59 | disposition home or self-care (01) | LOC: LAB.WCP 08:00 | PROVIDERS: ATTEND Internal Medicine | DX: I48.21 Permanent atrial fibrillation (principal); Z79.01 Long term (current) use of anticoagulants ==

== ENCOUNTER → 2021-08-24 | Outpatient (CLI) | payer MEDICARE, MEDICAID | LOC: LAB.WCP 08:00 | PROVIDERS: ATTEND Internal Medicine | DX: I48.21 Permanent atrial fibrillation (principal); Z79.01 Long term (current) use of anticoagulants ==

== ENCOUNTER 2021-12-02 08:00 | Outpatient (CLI) | payer MEDICARE, MEDICAID | END 2021-12-02 08:01 | disposition home or self-care (01) | LOC: LAB.WCP 08:00 | PROVIDERS: ATTEND Internal Medicine | DX: Z79.01 Long term (current) use of anticoagulants (principal); I48.21 Permanent atrial fibrillation ==

== ENCOUNTER 2021-12-25 08:00 | Outpatient (CLI) | payer MEDICARE, MEDICAID | END 2021-12-25 08:01 | disposition home or self-care (01) | LOC: LAB.WCP 08:00 | PROVIDERS: ATTEND Internal Medicine | DX: I48.21 Permanent atrial fibrillation (principal); Z79.01 Long term (current) use of anticoagulants ==

== ENCOUNTER → 2022-01-08 | Outpatient (CLI) | payer MEDICARE, MEDICAID | LOC: LAB.WCP 08:00 | PROVIDERS: ATTEND Internal Medicine | DX: Z79.01 Long term (current) use of anticoagulants (principal); I48.21 Permanent atrial fibrillation ==

== ENCOUNTER 2022-01-29 08:00 | Outpatient (CLI) | payer MEDICARE, MEDICAID | END 2022-01-29 23:59 | disposition home or self-care (01) | LOC: LAB.WCP 08:00 | PROVIDERS: ATTEND Internal Medicine | DX: Z79.01 Long term (current) use of anticoagulants (principal); I48.21 Permanent atrial fibrillation ==

== ENCOUNTER 2022-02-15 12:46 | Outpatient (CLI) | payer MEDICARE, MEDICAID ==
--- NOTE | 2022-02-15 16:50 | XRAY Report ---
PROCEDURE: Ribs 2 View RT INDICATIONS: R RIB PX AFTER A FALL TECHNIQUE: 3 views of the right ribs were acquired. COMPARISON: None FINDINGS: Surgical changes and devices: None. Bones and chest wall: No fractures or dislocations. No suspicious bony lesions. Overlying soft tis sues appear unremarkable. The right glenohumeral joint has severe degenerative changes with joint sp tone narrowing. Lungs and pleura: The visualized lung appears clear. No pleural effusions or pneumothorax are visib le. IMPRESSION: No rib fracture identified. Reviewed by: Rajat Ambrose on 02/15/2022 4:49 PM [facility] Approved by: Rajat Ambrose on 02/15/2022 4:49 PM PST Station ID: [id number]
--- NOTE | 2022-02-15 16:52 | XRAY Report ---
PROCEDURE: Thoracic Spine 3 View INDICATIONS: THORACIC BACK PX TECHNIQUE: 4 views of the thoracic spine were acquired. COMPARISON: None. FINDINGS: Bones: No fractures or dislocations. No suspicious bony lesions. 12 pairs of ribs are noted, and a ppear intact where visualized. There is rightward curvature of the thoracic spine. The thoracic spin e has multilevel degenerative changes with anterior osteophytes and endplate degenerative changes at multiple levels. Soft tissues: No paravertebral stripe thickening. IMPRESSION: 1. Multilevel degenerative changes of the thoracic spine without acute abnormality. 2. Dextroscoliosis of the thoracic spine. Reviewed by: Rajat Ambrose on 02/15/2022 4:50 PM PST Approved by: Rajat Ambrose on 02/15/2022 4:50 PM [facility] Station ID: [id number]
--- NOTE | 2022-02-15 16:54 | XRAY Report ---
PROCEDURE: Hips 2V BILAT INDICATIONS: R HIP PX AFTER A FALL TECHNIQUE: 5 views of the hip were acquired. COMPARISON: None FINDINGS: Bones: Postoperative changes of bilateral total hip replacement are seen. There is noNo lucency arou nd the hardware to suggest loosening or infection. Degenerative changes of the lower lumbar spine are seen. Fractures or dislocations. No suspicious bony lesions. The visualized pelvic ring appears in tact. Soft tissues: No suspicious soft tissue calcifications or masses. IMPRESSION: Postoperative changes of bilateral hip replacement without complication. Reviewed by: Rajat Ambrose on 02/15/2022 4:53 PM PST Approved by: Rjaat Ambrose on 02/15/2022 4:53 PM PST Station ID: [id number]
== END 2022-02-15 23:59 | disposition home or self-care (01) ==
LOC: DI.N 12:46
PROVIDERS: ATTEND Physician Assistant Medical
DX: M47.814 Spondylosis without myelopathy or radiculopathy, thoracic region (principal); M41.9 Scoliosis, unspecified; Z96.643 Presence of artificial hip joint, bilateral; R07.81 Pleurodynia

== ENCOUNTER 2022-04-02 08:00 | Outpatient (CLI) | payer MEDICARE, MEDICAID | END 2022-04-02 08:01 | disposition home or self-care (01) | LOC: LAB.WCP 08:00 | PROVIDERS: ATTEND Internal Medicine | DX: I48.21 Permanent atrial fibrillation (principal); Z79.01 Long term (current) use of anticoagulants ==

== ENCOUNTER 2022-05-13 14:57 | Outpatient (CLI) | payer MEDICARE, MEDICAID ==
[2022-05-13 17:46] LABS: BASOPHILS # (AUTO) 0.1 10^3/uL (0.0-0.1); BASOPHILS % (AUTO) 0.7 %; EOSINOPHILS # (AUTO) 0.2 10^3/uL (0.0-0.7); EOSINOPHILS % (AUTO) 2.4 %; HCT - HEMATOCRIT 51.2 % (42.0-52.0); HGB - HEMOGLOBIN 16.4 g/dL (14.0-18.0); LYMPHOCYTES # (AUTO) 1.7 10^3/uL (1.5-3.5); LYMPHOCYTES % (AUTO) 21.8 %; MEAN CORPUSCULAR HEMOGLOBIN 30.9 pg (27.0-31.0); MEAN CORPUSCULAR VOLUME 96.6 fL (80.0-94.0); MEAN PLATELET VOLUME 11.5 fL (7.4-11.4); MONOCYTES # (AUTO) 0.6 10^3/uL (0.0-1.0); MONOCYTES % (AUTO) 8.4 %; NEUTROPHILS # (AUTO) 5.1 10^3/uL (1.5-6.6); NEUTROPHILS % (AUTO) 66.4 %; PLT - PLATELET COUNT 143 10^3/uL (130-450); RED CELL DISTRIBUTION WIDTH 15.3 % (12.0-15.0); WHITE BLOOD COUNT 7.6 x10^3/uL (4.8-10.8)
[2022-05-13 18:31] LABS: ALBUMIN/GLOBULIN RATIO 1.3 (1.0-2.2); ALKALINE PHOSPHATASE 76 IU/L (42-121); ALT ALANINE AMINOTRANSFERASE 24 IU/L (10-60); AST ASPARTATE AMINOTRANSFERASE 20 IU/L (10-42); BILIRUBIN,TOTAL 1.1 mg/dL (0.2-1.0); BUN - BLOOD UREA NITROGEN 15 mg/dL (6-20); CALCIUM 8.9 mg/dL (8.5-10.3); CARBON DIOXIDE - CO2 32 mmol/L (21-32); CHLORIDE 106 mmol/L (101-111); CHOL/HDL RATIO 2.2 (<5.0); CHOLESTEROL 80 mg/dL; GFR - MDRD 72 (>89); GLUCOSE 106 mg/dL (70-100); HDL CHOLESTEROL 36 mg/dL; LDL CHOLESTEROL,CALCULATED 34 mg/dL; LDL/HDL RATIO 0.9 (<3.6); MAGNESIUM 2.2 mg/dL (1.7-2.8); POTASSIUM 4.3 mmol/L (3.5-5.0); SODIUM 145 mmol/L (135-145); TOTAL PROTEIN 7.1 g/dL (6.7-8.2); TRIGLYCERIDES 50 mg/dL; VLDL CHOLESTEROL 10 mg/dL
[2022-05-13 18:44] LABS: THYROID STIMULATING HORMONE 0.81 uIU/mL (0.34-5.60)
[2022-05-13 22:24] LABS: ESTIMATED AVERAGE GLUCOSE 143 mg/dL (70-100); HEMOGLOBIN A1c% 6.6 % (4.27-6.07)
== END 2022-05-13 14:58 | disposition home or self-care (01) ==
LOC: LAB.N 14:57
PROVIDERS: ATTEND Specialist
DX: I10 Essential (primary) hypertension (principal); E78.2 Mixed hyperlipidemia; R73.01 Impaired fasting glucose; I48.21 Permanent atrial fibrillation
CPT/HCPCS: 36415; 80053; 80061; 81599; 83036; 83704; 83721; 83735; 84443; 85025

== ENCOUNTER 2022-07-30 08:00 | Outpatient (CLI) | payer MEDICARE, MEDICAID | END 2022-07-30 23:59 | disposition home or self-care (01) | LOC: LAB.N 08:00 | PROVIDERS: ATTEND Internal Medicine | DX: Z79.01 Long term (current) use of anticoagulants (principal); I48.21 Permanent atrial fibrillation ==

== ENCOUNTER 2022-08-19 08:00 | Outpatient (CLI) | payer MEDICARE, MEDICAID | END 2022-08-19 23:59 | disposition home or self-care (01) | LOC: LAB.N 08:00 | PROVIDERS: ATTEND Specialist | DX: R10.9 Unspecified abdominal pain (principal) | CPT/HCPCS: 87086; 87181 ==

== ENCOUNTER 2022-08-20 02:08 | Outpatient (CLI) | payer MEDICARE, MEDICAID | END 2022-08-20 23:59 | disposition critical access hospital (66) | LOC: EMS 02:08 | DX: M54.50 Low back pain, unspecified (principal); M54.6 Pain in thoracic spine; R39.89 Other symptoms and signs involving the genitourinary system; Z79.01 Long term (current) use of anticoagulants; Z91.81 History of falling | CPT/HCPCS: A0425; A0429 ==

== ENCOUNTER 2022-08-20 02:58 | Emergency (ER) | payer MEDICARE, MEDICAID ==
[2022-08-20] MEDS ORDERED: oxyCODONE 5 MG TABLET PO STA (03:42)
--- NOTE | 2022-08-20 03:46 | ED Physician Documentation ---
History of Present Illness - Stated complaint Stated Complaint: FALL - Chief complaint Chief Complaint: Back Pain - History obtained from History obtained from: Patient - Additonal information Additional information: 82-year-old man presents to the ER with multiple medical complaints. Patient states that he fell 2 weeks ago and has had left-sided back pain since that time. He also was seen in clinic earlier today and told to come to the ER immediately but then had to carpals and people from the [employer] so states that he could not come until just now. Patient complains of dark urine, increased frequency, suprapubic pain, cough productive of yellow sputum for the past several weeks, left lateral chest pain, and left back pain. He is a daily smoker. PD PAST MEDICAL HISTORY - Past Medical History Cardiovascular: Congestive heart failure, Hypertension, High cholesterol Respiratory: COPD, Emphysema, Pneumonia - Past Surgical History Past Surgical History: Yes General: Hiatal hernia repair Ortho: Hip replacement, Knee replacement, Arthroscopic surgery HEENT: Tonsil/Adenoidectomy - Present Medications Home Medications: Ambulatory Orders Medication Instructions Recorded Confirmed Albuterol [Ventolin Hfa] 1 puffs PO DAILY 12/17/14 12/17/14 Aspirin 81 mg PO DAILY 12/17/14 12/17/14 Baclofen 10 mg PO DAILY 12/17/14 12/17/14 Carvedilol [Coreg] 6.25 mg PO BID 12/17/14 12/17/14 Cephalexin [Keflex] 500 mg PO TID #20 capsule 12/17/14 Fluticasone/Salmeterol [Advair 12/17/14 12/17/14 100-50 Diskus] Ibuprofen 600 mg PO BID #15 tablet 12/17/14 Lisinopril [Zestril] 10 mg PO DAILY 12/17/14 12/17/14 Oxycodone HCl/Acetaminophen 1 each PO Q6H PRN #20 tablet 12/17/14 [Percocet 5-325 mg Tablet] Simvastatin [Zocor] 20 mg PO DAILY 12/17/14 12/17/14 Tiotropium [place] [Spiriva] 18 mcg PO DAILY 12/17/14 12/17/14 oxyCODONE/ACET 5/325 [Percocet 5 1 tab PO DAILY 12/17/14 12/17/14 mg/325 mg] Doxycycline Hyclate 100 mg PO BID #20 capsule 03/14/19 predniSONE [Deltasone] 20 mg PO [id number] #21 tab 03/14/19 Acyclovir 800 mg PO 5XD #50 tablet 06/03/19 Gabapentin [Neurontin] 300 mg PO TID #30 capsule 06/03/19 Hydrocodone/Acetaminophen 1 - 2 each PO Q6H PRN #14 tablet 06/03/19 [Hydrocodon-Acetaminophen 5-325] predniSONE [Deltasone] 20 mg PO [id number] #21 tab 06/03/19 Amox/Clav 875/125 [Augmentin 1 tablet PO Q12H 7 Days #14 tablet 08/20/22 875/125 Tab] - Allergies Allergies/Adverse Reactions: Allergies Allergy/AdvReac Type Severity Reaction Status Date / Time No Known Drug Allergies Allergy Verified 05/16/19 12:32 - Social History Does the pt smoke?: Yes Smoking Status: Current every day smoker Does the pt drink ETOH?: No Does the pt have substance abuse?: No PD ED PE NORMAL - Vitals Vital signs reviewed: Yes - General General: Alert and oriented X 3, No acute distress, Well developed/nourished, Other (strong smell of cigarettes) - HEENT HEENT: Atraumatic, PERRL, EOMI - Neck Neck: Supple, no meningeal sign - Cardiac Cardiac: RRR - Respiratory Respiratory: No respiratory distress, Other (Coarse bilateral breath sounds. L lateral lower ribcage ttp) - Abdomen Abdomen: Non tender, Non distended - Derm Derm: Normal color, Warm and dry - Psych Psych: Normal mood, Normal affect Results - Vitals Vitals: Vital Signs - 24 hr 08/20/22 08/20/22 03:02 03:49 Temperature 36.7 C Heart Rate 86 76 Respiratory 18 18 Rate Blood Pressure 160/86 H 148/90 H O2 Saturation 97 95 Oxygen O2 Source Room air - Labs Labs: Laboratory Tests 08/20/22 04:59 Urine Color DARK YELLOW Urine Clarity HAZY Urine pH 5.5 Ur Specific [place] 1.025 Urine Protein 30 H Urine Glucose (UA) NEGATIVE Urine Ketones TRACE Urine Occult Blood MODERATE H Urine Nitrite NEGATIVE Urine Bilirubin NEGATIVE Urine Urobilinogen 1 (NORMAL) Ur Leukocyte Esterase SMALL H Urine RBC 0-5 Urine WBC >25 H Ur Squamous Epith Cells FEW Squamous Urine Bacteria Rare Urine Mucus Moderate Strands Urine Culture Comments INDICATED PD Medical Decision Making - ED course ED course: 82-year-old man presents the ER with multiple medical complaints. Plan to check urinalysis for UTI, chest x-ray for pneumonia and/or traumatic injury from his fall. Oxycodone provided for pain. We will reevaluate. CXR shows pneumonia but no fractures. u/a shows uti. abx prescribed. return precautions given. plan to f/u with pcp. Departure - Departure Disposition: Home, Self Care Clinical Impression: Pneumonia Condition: Stable Instructions: Pneumonia Dc Prescriptions: Amox/Clav 875/125 [Augmentin 875/125 Tab] 1 tablet PO Q12H 7 Days #14 tablet Comments: You were seen in the emergency department for leg pain and cough. You have pneumonia on your chest x-ray but no broken ribs. You also have a uti. Please follow-up with your primary care provider. You may need to get follow-up CT because there may be a mass in the right lung. Antibiotics were prescribed and printed by paper prescription prescription. These can treat both pneumonia and uti. Return to the emergency department if you have new or worsening symptoms or other concerns.
[2022-08-20 05:18] LABS: GLUCOSE, URINE (UA) NEGATIVE (NEGATIVE); KETONES,URINE (UA) TRACE mg/dL (NEGATIVE); LEUKOCYTE ESTERASE, URINE SMALL (NEGATIVE); NITRITE,URINE NEGATIVE (NEGATIVE); OCCULT BLOOD,URINE MODERATE (NEGATIVE); PH,URINE 5.5 PH (5.0-7.5); PROTEIN,URINE 30 mg/dL (NEGATIVE); UROBILINOGEN,URINE 1 (NORMAL) E.U./dL (NORMAL)
[2022-08-20 05:30] LABS: BILIRUBIN,URINE NEGATIVE (NEGATIVE); CLARITY,URINE HAZY (CLEAR); ICTOTEST,URINE NEGATIVE; RBC,URINE 0-5 /HPF (0-5); SQUAMOUS EPITHELIAL CELL,UR FEW Squamous (<= Few); WBC,URINE >25 /HPF (0-3)
[2022-08-20 05:31] LABS: BACTERIA,URINE Rare /HPF (None Seen); MUCUS,URINE Moderate Strands
[2022-08-20 06:00] VITALS: BP 137/82
--- NOTE | 2022-08-20 08:08 | XRAY Report ---
PROCEDURE: Chest 2 View X-Ray INDICATIONS: L lateral lower rib pain, chronic cough TECHNIQUE: 2 views of the chest were acquired. COMPARISON: None. FINDINGS: Surgical changes and devices: None. Lungs and pleura: Right middle lobe consolidation. Mediastinum: Mediastinal contours appear normal. Heart size is normal. Bones and chest wall: No suspicious bony lesions. Overlying soft tissues appear unremarkable. IMPRESSION: Right middle lobe consolidation, either infection or mass. Recommend follow-up CT if no signs of infe ction, or follow-up x-ray in one month following treatment. No displaced fracture. Findings are concordant with preliminary interpretation provided by [facility]. Reviewed by: Quinton Brown on 08/20/2022 8:06 AM PDT Approved by: Quinton Brown on 08/20/2022 8:06 AM PDT Station ID: [id number]
== END 2022-08-20 05:59 | disposition home or self-care (01) ==
LOC: EDUNIT# → ED 02:58
DX: J18.9 Pneumonia, unspecified organism (principal); F17.200 Nicotine dependence, unspecified, uncomplicated
CPT/HCPCS: 71046; 81001; 87086; 87181; 99284; A9270

== ENCOUNTER 2022-10-20 08:00 | Outpatient (CLI) | payer MEDICARE, MEDICAID | END 2022-10-20 23:59 | disposition home or self-care (01) | LOC: LAB.N 08:00 | PROVIDERS: ATTEND Internal Medicine | DX: Z79.01 Long term (current) use of anticoagulants (principal); I48.21 Permanent atrial fibrillation ==

== ENCOUNTER 2022-11-22 08:00 | Outpatient (CLI) | payer MEDICARE, MEDICAID | END 2022-11-22 23:59 | disposition home or self-care (01) | LOC: LAB.N 08:00 | PROVIDERS: ATTEND Internal Medicine | DX: I48.91 Unspecified atrial fibrillation (principal); Z79.01 Long term (current) use of anticoagulants ==

== ENCOUNTER 2023-01-07 08:00 | Outpatient (CLI) | payer MEDICARE, MEDICAID | END 2023-01-07 23:59 | disposition home or self-care (01) | LOC: LAB.N 08:00 | PROVIDERS: ATTEND Internal Medicine | DX: Z79.01 Long term (current) use of anticoagulants (principal); I48.21 Permanent atrial fibrillation ==

== ENCOUNTER 2023-01-21 08:00 | Outpatient (CLI) | payer MEDICARE, MEDICAID | END 2023-01-21 23:59 | disposition home or self-care (01) | LOC: LAB.N 08:00 | PROVIDERS: ATTEND Internal Medicine | DX: I48.21 Permanent atrial fibrillation (principal); Z79.01 Long term (current) use of anticoagulants ==

== ENCOUNTER 2023-01-28 08:00 | Outpatient (CLI) | payer MEDICARE, MEDICAID | END 2023-01-28 23:59 | disposition home or self-care (01) | LOC: LAB.N 08:00 | PROVIDERS: ATTEND Internal Medicine | DX: Z79.01 Long term (current) use of anticoagulants (principal); I48.21 Permanent atrial fibrillation ==

== ENCOUNTER 2023-03-16 08:00 | Outpatient (CLI) | payer MEDICARE, MEDICAID | END 2023-03-16 08:01 | disposition home or self-care (01) | LOC: LAB.WCP 08:00 | PROVIDERS: ATTEND Internal Medicine | DX: I48.21 Permanent atrial fibrillation (principal); Z79.01 Long term (current) use of anticoagulants ==

== ENCOUNTER 2023-03-23 10:28 | Outpatient (CLI) | payer MEDICARE, MEDICAID ==
[2023-03-23 12:05] LABS: ESTIMATED AVERAGE GLUCOSE 131 mg/dL (70-100); HEMOGLOBIN A1c% 6.2 % (4.27-6.07)
[2023-03-23 12:14] LABS: BASOPHILS # (AUTO) 0.1 10^3/uL (0.0-0.1); BASOPHILS % (AUTO) 0.9 %; EOSINOPHILS # (AUTO) 0.3 10^3/uL (0.0-0.7); EOSINOPHILS % (AUTO) 3.9 %; HCT - HEMATOCRIT 47.5 % (42.0-52.0); HGB - HEMOGLOBIN 15.1 g/dL (14.0-18.0); LYMPHOCYTES # (AUTO) 1.7 10^3/uL (1.5-3.5); LYMPHOCYTES % (AUTO) 26.6 %; MEAN CORPUSCULAR HEMOGLOBIN 31.1 pg (27.0-31.0); MEAN CORPUSCULAR HGB CONC 31.8 g/dL (32.0-36.0); MEAN CORPUSCULAR VOLUME 97.9 fL (80.0-94.0); MEAN PLATELET VOLUME 11.5 fL (7.4-11.4); MONOCYTES # (AUTO) 0.6 10^3/uL (0.0-1.0); NEUTROPHILS # (AUTO) 3.8 10^3/uL (1.5-6.6); NEUTROPHILS % (AUTO) 59.4 %; PLT - PLATELET COUNT 144 10^3/uL (130-450); RED BLOOD COUNT 4.85 10^6/uL (4.70-6.10); RED CELL DISTRIBUTION WIDTH 15.6 % (12.0-15.0); WHITE BLOOD COUNT 6.4 x10^3/uL (4.8-10.8)
[2023-03-23 12:15] LABS: ALBUMIN 3.9 g/dL (3.2-5.5); ALBUMIN/GLOBULIN RATIO 1.3 (1.0-2.2); ALKALINE PHOSPHATASE 91 IU/L (42-121); ALT ALANINE AMINOTRANSFERASE 17 IU/L (10-60); AST ASPARTATE AMINOTRANSFERASE 16 IU/L (10-42); BUN - BLOOD UREA NITROGEN 18 mg/dL (6-20); CALCIUM 8.8 mg/dL (8.5-10.3); CARBON DIOXIDE - CO2 32 mmol/L (21-32); CHLORIDE 106 mmol/L (101-111); CHOLESTEROL 134 mg/dL; GFR - MDRD 72 (>89); GLUCOSE 101 mg/dL (74-104); HDL CHOLESTEROL 45 mg/dL; LDL CHOLESTEROL,CALCULATED 76 mg/dL; LDL/HDL RATIO 1.7 (<3.6); POTASSIUM 4.6 mmol/L (3.5-4.5); SODIUM 139 mmol/L (135-145); TOTAL PROTEIN 6.8 g/dL (6.4-8.9); TRIGLYCERIDES 63 mg/dL (48-352); VLDL CHOLESTEROL 13 mg/dL
== END 2023-03-23 10:29 | disposition home or self-care (01) ==
LOC: LAB.N 10:28
PROVIDERS: ATTEND Internal Medicine
DX: E11.9 Type 2 diabetes mellitus without complications (principal); E78.2 Mixed hyperlipidemia; I10 Essential (primary) hypertension
CPT/HCPCS: 36415; 80053; 80061; 82043; 82570; 83036; 83721; 85025

== ENCOUNTER 2023-04-13 08:00 | Outpatient (CLI) | payer MEDICARE, MEDICAID | END 2023-04-13 08:01 | disposition home or self-care (01) | LOC: LAB.N 08:00 | PROVIDERS: ATTEND Internal Medicine | DX: I48.21 Permanent atrial fibrillation (principal); Z79.01 Long term (current) use of anticoagulants ==

== ENCOUNTER → 2023-05-06 | Outpatient (CLI) | payer MEDICARE, MEDICAID | LOC: LAB.WCP 08:00 | PROVIDERS: ATTEND Internal Medicine | DX: I48.21 Permanent atrial fibrillation (principal); Z79.01 Long term (current) use of anticoagulants ==

== ENCOUNTER 2023-05-30 08:00 | Outpatient (CLI) | payer MEDICARE, MEDICAID | END 2023-05-30 08:01 | disposition home or self-care (01) | LOC: LAB.N 08:00 | PROVIDERS: ATTEND Internal Medicine | DX: I48.21 Permanent atrial fibrillation (principal); Z79.01 Long term (current) use of anticoagulants ==

== ENCOUNTER 2023-06-08 09:18 | Outpatient (CLI) | payer MEDICARE, MEDICAID ==
--- NOTE | 2023-06-08 10:34 | Sleep Patient Instructions ---
Sleep Center Visit Summary - Patient Visit Information Reason for Visit: Initial consult for evaluation of sleep disordered breathing and other sleep issues. - Patient Instructions Instructions Attached: Sleep Study Additional Instructions: You will be completing a sleep study, either an in-lab polysomnography (PSG) or home sleep study (HST). You will follow-up in the sleep care office after the sleep study is completed to hear the results and talk about therapy, if needed. You will be called by our office staff to schedule this appointment, but you may contact us with any questions. - Clinic Information Contact: [facility] [address] [place] [address] [email or web address] T: [phone]
--- NOTE | 2023-06-08 10:40 | SLEEP CARE CONSULTATION ---
Information from patient questionnaire entered by Isaac Alvarez. I have reviewed and concur with the information entered by Isaac Alvarez. This document represents the service I personally performed and the decisions made by me, Lily Jay ARNP. History of Present Illness Service Date and Time: 06/08/2023 09 Reason for Visit: New patient Chief Complaint: reports: Unrefreshed sleep, Excessive daytime sleepiness, Fatigue Date of Onset: 30YRS Usual bedtime: 0100 Snores at night: Yes Observed to quit breathing while asleep: No (unknown) Sleeps alone due to snoring: No Number of times waking at night: 2-3 times Reasons for waking at night: reports: Gasping for air, Bathroom, Other (UNKNOWN ). denies: Choking Toss, Turn, or Twitch while sleeping: Yes Recalls having dreams: Yes Usually gets out of bed at: 1000 Feels refreshed in the morning: No Morning headache: No Sleepy or fatigued during the day: Yes Ever fallen asleep while driving: Yes Takes day naps: Yes (unsure if every day) Prior sleep studies: No Additional HPI information: I had the pleasure of seeing ENID HERNANDEZ today regarding the possibility of him having a sleep disorder. His current complaints are unrefreshed sleep, sleepiness and fatigue. He says he has many family members who have had sleep apnea. He says he has not had a sleep study in the past. His never told him he snored but his sister did tell him that she could hear him snore from his bedroom to hers. He says sometimes he can lay down and not fall asleep for a few hours of sleep. He can lay down during day and sleep for 2 hours or more. He is not trying to fall asleep intentional but will fall asleep when watching TV. 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 Patient is / and lives in . Have you smoked in the past 12 months: Yes Cigarettes per day (20/pack): 40 Years of smokin Smoking Pack Years: 120.0 Alcohol use: No Caffeine use: Yes Caffeine amount and frequency: 2 POTS QD Family History Family history of sleep disordered breathing: Yes Family Hx Sleep Apnea: Mother: Snoring, Father: Snoring, Sleep apnea - Treated, Sibling: Snoring Allergies and Home Medications Known drug allergies: No Drug allergies reviewed: Yes Home medication list reviewed: Yes (as listed) Allergy and home medication list: Allergies No Known Drug Allergies Allergy (Verified 06/07/23 16:13) Home Medications Medication Instructions Recorded Confirmed Last Taken Type Albuterol [Ventolin Hfa] 1 puffs PO DAILY 12/17/14 06/08/23 Unknown History Baclofen 10 mg PO DAILY 12/17/14 06/08/23 Unknown History Fluticasone/Salmeterol [Advair See Rx Instructions .ROUTE .COMPLEX 12/17/14 06/08/23 Unknown History 100-50 Diskus] Gabapentin [Neurontin] 300 mg PO TID #30 capsule 06/03/19 06/08/23 Unknown Rx Furosemide [Lasix] See Rx Instructions .ROUTE .COMPLEX 06/08/23 06/08/23 Unknown History Metoprolol Tartrate [Lopressor] See Rx Instructions .ROUTE .COMPLEX 06/08/23 06/08/23 Unknown History Montelukast Sodium See Rx Instructions .ROUTE .COMPLEX 06/08/23 06/08/23 Unknown History Warfarin [Coumadin] See Rx Instructions .ROUTE .COMPLEX 06/08/23 06/08/23 Unknown History amLODIPine [Norvasc] See Rx Instructions .ROUTE .COMPLEX 06/08/23 06/08/23 Unknown History buPROPion HCL [Bupropion Xl] See Rx Instructions .ROUTE .COMPLEX 06/08/23 06/08/23 Unknown History Review of Systems Cardiovascular: reports: high blood pressure, chest pain, irregular heart rate or pulse, leg or foot swelling Respiratory: reports: shortness of breath, wheeze, chronic cough Gastrointestinal: reports: heartburn Urinary: reports: frequency Neurological: reports: headaches, gait or balance problems Ear/Nose/Throat: reports: nasal congestion, dry mouth/throat, tonsillectomy Endocrine: reports: sluggishness, increased urination Musculoskeletal: reports: joint pain, back pain, muscle pain or cramping, mobility problems Immunologic: reports: sneezing Physical Exam Vital signs obtained and entered by: ISAAC Brennan MA Blood Pressure: 143/88 (LEFT ARM) Cuff size: regular Heart Rate: 64 O2 Saturation: 95 Height: 5 ft 10 in Weight: 243 lb Body Mass Index: 34.8 BMI Classification: Obese Neck circumference: 18 Mouth and throat: narrow oropharynx Soft palate: long Hard palate: normal Uvula: normal Uvula visualization: 25% Mallampati Class III Tongue: normal in size Tonsils: absent bilaterally Heart: regular rate and rhythm Lungs: clear bilaterally Impression and Plan 1. Suspected Obstructive Sleep Apnea-Hypopnea Syndrome, as suggested by a history of loud and irregular snoring, gasping or choking in sleep, unrefreshed sleep, cognitive impairment, and excessive daytime sleepiness. Narrow oropharynx and obesity are common predisposing factors for obstructive sleep apnea-hypopnea syndrome. I recommend proceeding to polysomnography to confirm the diagnosis and to assess severity. If the patient has significant sleep disordered breathing, a manual CPAP titration study will also be performed to find the optimal treatment pressure. I informed the patient of what the sleep studies involve and after some discussion, obtained agreement to proceed. The pathophysiology of obstructive sleep apnea-hypopnea syndrome was discussed with the patient and health risks of cardiovascular and cerebrovascular disease if not treated. Risks of drowsy driving discussed in detail and patient advised to avoid long distance driving and to cable puller at the first sign of drowsiness. Patient agreed to plan. * Schedule polysomnography. * Avoid long distance driving or driving when feeling sleepy. * Avoid alcohol, sedative and muscle relaxant around bedtime. * Attempt to lose weight. * Review instructions provided by trained office staff on how to prepare for the sleep study. * Return for follow-up after sleep study completed. Counseling Topics: Weight loss health impact Plan: PSG Visit Type: In Office Time Spent with Patient (minutes): 30 Provider Statement: I spent 100% of the Face to Face Visit with the patient with greater than 50% spent counseling the patient and coordination of care.
[2023-06-08 10:44] VITALS: BP 143/88; O2SAT 95
== END 2023-06-08 09:19 | disposition home or self-care (01) ==
LOC: SC 09:18
PROVIDERS: ATTEND Nurse Practitioner Family
DX: G47.10 Hypersomnia, unspecified (principal); F17.210 Nicotine dependence, cigarettes, uncomplicated; R06.83 Snoring; R41.89 Other symptoms and signs involving cognitive functions and awareness
CPT/HCPCS: 99203; G0463; 99212

== ENCOUNTER 2023-06-13 08:00 | Outpatient (CLI) | payer MEDICARE, MEDICAID | END 2023-06-13 08:01 | disposition home or self-care (01) | LOC: LAB.N 08:00 | PROVIDERS: ATTEND Internal Medicine | DX: Z79.01 Long term (current) use of anticoagulants (principal); I48.21 Permanent atrial fibrillation ==

== ENCOUNTER 2023-07-18 08:00 | Outpatient (CLI) | payer MEDICARE, MEDICAID | END 2023-07-18 08:01 | disposition home or self-care (01) | LOC: LAB.N 08:00 | PROVIDERS: ATTEND Internal Medicine | DX: I48.21 Permanent atrial fibrillation (principal); Z79.01 Long term (current) use of anticoagulants ==

== ENCOUNTER 2023-08-14 19:11 | Outpatient (CLI) | payer MEDICARE, MEDICAID | END 2023-08-14 19:12 | disposition home or self-care (01) | LOC: SC 19:11 | PROVIDERS: ATTEND Nurse Practitioner Family | DX: G47.33 Obstructive sleep apnea (adult) (pediatric) (principal); E66.9 Obesity, unspecified; Z68.34 Body mass index [BMI] 34.0-34.9, adult; G47.61 Periodic limb movement disorder; I48.91 Unspecified atrial fibrillation | CPT/HCPCS: 95810 ==

== ENCOUNTER 2023-10-24 05:48 | Outpatient (CLI) | payer MEDICARE, MEDICAID | END 2023-10-24 23:59 | disposition critical access hospital (66) | LOC: EMS 05:48 | DX: R06.02 Shortness of breath (principal); R42 Dizziness and giddiness; R06.2 Wheezing | CPT/HCPCS: A0425; A0429 ==

== ENCOUNTER 2023-10-24 06:09 | Emergency (ER) | payer MEDICARE, MEDICAID ==
--- NOTE | 2023-10-24 06:19 | ED Physician Documentation ---
PD HPI DYSPNEA - Stated complaint Stated Complaint: SOA - Chief complaint Chief Complaint: Resp - History obtained from History obtained from: Patient, EMS - Additional information Additional information: 83-year-old male with history of congestive heart failure, COPD, atrial fibrillation on warfarin presents by EMS from home for shortness of breath. Patient states that he has been out of his Spiriva inhaler for several days and has had progressively worsening shortness of breath. He cannot tell if this is similar to COPD or CHF. He states that he has noticed some increased swelling in his lower extremities. EMS reports that room oxygen saturations were 94%. They administered a DuoNeb treatment during transport to the emergency department. Patient is noted to be pursed lip breathing on arrival, but is able to speak in complete sentences with small amount of dyspnea Review of Systems Constitutional: denies: Fever, Chills Cardiac: denies: Chest pain / pressure, Palpitations, Calf pain Respiratory: reports: Dyspnea, Wheezing. denies: Cough Musculoskeletal: reports: Extremity swelling. denies: Neck pain, Back pain, Extremity pain, Joint pain Neurologic: denies: Generalized weakness, Focal weakness, Numbness PD PAST MEDICAL HISTORY - Past Medical History Cardiovascular: Congestive heart failure, Hypertension, High cholesterol Respiratory: COPD, Emphysema, Pneumonia - Past Surgical History Past Surgical History: Yes General: Hiatal hernia repair Ortho: Hip replacement, Knee replacement, Arthroscopic surgery HEENT: Tonsil/Adenoidectomy - Present Medications Home Medications: Ambulatory Orders Medication Instructions Recorded Confirmed Metoprolol Tartrate [Lopressor] 25 mg PO BID 06/08/23 10/24/23 Montelukast Sodium 10 mg PO DAILY 06/08/23 10/24/23 amLODIPine [Norvasc] 5 mg PO DAILY 06/08/23 10/24/23 buPROPion HCL [Bupropion Xl] 150 mg PO DAILY 06/08/23 10/24/23 Albuterol Sulfate 1.25 mg IH Q4HR PRN 10/24/23 10/24/23 Albuterol Sulfate [Proair 90 mcg IH Q4HR PRN 10/24/23 10/24/23 Digihaler] Atorvastatin Calcium 40 mg PO DAILY 10/24/23 10/24/23 Baclofen [Lioresal] 10 mg PO BID 10/24/23 10/24/23 Fluticasone Propion/Salmeterol 1 puffs INH BID 10/24/23 10/24/23 [Fluticasone-Salmeterol 250-50] Gabapentin [Neurontin] 600 mg PO BID 10/24/23 10/24/23 Lisinopril [Zestril] 40 mg PO DAILY 10/24/23 10/24/23 Tiotropium [place] [Spiriva 1 puffs INH DAILY 10/24/23 10/24/23 Respimat] Warfarin Sodium [Coumadin] See Rx Instructions .ROUTE .COMPLEX 10/24/23 10/24/23 - Allergies Allergies/Adverse Reactions: Allergies Allergy/AdvReac Type Severity Reaction Status Date / Time No Known Drug Allergies Allergy Verified 10/24/23 06:22 - Social History Does the pt smoke?: Yes Smoking Status: Current every day smoker Does the pt drink ETOH?: No Does the pt have substance abuse?: No - Immunizations Immunizations are current?: Yes - POLST Patient has POLST: No PD ED PE NORMAL - Vitals Vital signs reviewed: Yes - General General: Alert and oriented X 3, Well developed/nourished, Other (appears chr onically unwell, frail) - Cardiac Cardiac: Other (irregularly irregular rhythm) - Respiratory Respiratory: Other (pursed lip breathing, tachypnea, audible expiratory wheezes) - Abdomen Abdomen: Soft, Non tender, Non distended - Derm Derm: Normal color, Warm and dry, No rash - Extremities Extremities: No deformity, No tenderness to palpate, Normal ROM s pain, Other (trace pitting edema to knees) - Neuro Neuro: Alert and oriented X 3, wax cutter 2-12 intact, No motor deficit, Normal speech Results - Vitals Vitals: Vital Signs - 24 hr 10/24/23 06:10 Temperature 36.9 C Heart Rate 102 H Respiratory 28 H Rate Blood Pressure 155/92 H O2 Saturation 93 Oxygen O2 Source Room air - Labs Labs: Laboratory Tests 10/24/23 10/24/23 10/24/23 06:00 06:00 06:00 WBC 6.1 RBC 5.04 Hgb 15.8 Hct 49.4 MCV 98.0 H MCH 31.3 H MCHC 32.0 RDW 15.0 Plt Count 89 L MPV 10.9 Neut # (Auto) 4.2 Lymph # (Auto) 0.9 L Cochran # (Auto) 0.9 Eos # (Auto) 0.0 Baso # (Auto) 0.0 Absolute Nucleated RBC 0.00 Nucleated RBC % 0.0 PT 40.3 H INR 4.0 H Sodium 138 Potassium 4.0 Chloride 101 Carbon Dioxide 29 Anion Gap 8.0 BUN 19 Creatinine 1.2 Estimated GFR (MDRD) 58 L Glucose 125 H Calcium 9.1 Magnesium 1.9 Total Bilirubin 1.4 H AST 17 ALT 13 Alkaline Phosphatase 77 Total Protein 7.8 Albumin 4.1 Globulin 3.7 Albumin/Globulin Ratio 1.1 PD Medical Decision Making - ED course Complexity details: reviewed old records, reviewed results, re-evaluated patient, considered differential, d/w patient ED course: Patient presenting for shortness of breath. Has history of COPD and CHF, he cannot identify if this feels more similar to his COPD exacerbation or CHF exacerbation. He states that he has had increased swelling of his lower extremities. Nebulizers, steroids ordered. Laboratory work, chest x-ray imaging, respiratory panel for further assessment. Initial chest x-ray shows no obvious consolidation, perhaps trace pulmonary edema without pleural effusion present. Preliminary review of labs reassuring. No leukocytosis, normal electrolytes. Troponin is pending. INR supratherapeutic at 4.0. Care of patient to be signed out to daytime physician. Final disposition pending their evaluation and judgment. Departure - Departure Forms: PCP List
[2023-10-24 06:36] LABS: BASOPHILS % (AUTO) 0.3 %; EOSINOPHILS % (AUTO) 0.5 %; HCT - HEMATOCRIT 49.4 % (42.0-52.0); HGB - HEMOGLOBIN 15.8 g/dL (14.0-18.0); LYMPHOCYTES # (AUTO) 0.9 10^3/uL (1.5-3.5); LYMPHOCYTES % (AUTO) 15.4 %; MEAN CORPUSCULAR HEMOGLOBIN 31.3 pg (27.0-31.0); MEAN PLATELET VOLUME 10.9 fL (7.4-11.4); MONOCYTES # (AUTO) 0.9 10^3/uL (0.0-1.0); MONOCYTES % (AUTO) 14.1 %; NEUTROPHILS # (AUTO) 4.2 10^3/uL (1.5-6.6); NEUTROPHILS % (AUTO) 69.5 %; PLT - PLATELET COUNT 89 10^3/uL (130-450); RED BLOOD COUNT 5.04 10^6/uL (4.70-6.10); WHITE BLOOD COUNT 6.1 x10^3/uL (4.8-10.8)
[2023-10-24 06:48] LABS: ALBUMIN 4.1 g/dL (3.2-5.5); ALBUMIN/GLOBULIN RATIO 1.1 (1.0-2.2); BILIRUBIN,TOTAL 1.4 mg/dL (0.2-1.0); CALCIUM 9.1 mg/dL (8.5-10.3); CREATININE 1.2 mg/dL (0.6-1.3); MAGNESIUM 1.9 mg/dL (1.7-2.3); PT - PROTHROMBIN TIME 40.3 secs (9.9-12.6); TOTAL PROTEIN 7.8 g/dL (6.4-8.9)
[2023-10-24] MEDS: IPRATROPIUM/ALBUTEROL 3 ML NEB INH STA (06:54)
[2023-10-24] MEDS: methylPREDNISolone SUCCINATE 125 MG/2 ML VIAL IVP STA (06:55)
[2023-10-24 07:26] LABS: B. PARAPERTUSSIS- RESP PCR PAN NOT DETECTED; B. PERTUSSIS- RESP PCR PANEL NOT DETECTED; C. PNEUMONIAE- RESP PCR PANEL NOT DETECTED; CORONAVIRUS 229E-RESP PCR NOT DETECTED; CORONAVIRUS HKU1-RESP PCR NOT DETECTED; CORONAVIRUS NL63-RESP PCR NOT DETECTED; CORONAVIRUS OC43-RESP PCR NOT DETECTED; HUMAN METAPNEUMOVIRUS NOT DETECTED; INFLUENZA A- RESP PCR PANEL NOT DETECTED; INFLUENZA B - RESP PCR PANEL NOT DETECTED; M. PNEUMONIAE- RESP PCR PANEL NOT DETECTED; PARAINFLUENZA VIRUS 1 NOT DETECTED; PARAINFLUENZA VIRUS 2 NOT DETECTED; PARAINFLUENZA VIRUS 3 NOT DETECTED; PARAINFLUENZA VIRUS 4 NOT DETECTED; RHINOVIRUS/ENTEROVIRUS NOT DETECTED; RSV- RESP PCR PANEL NOT DETECTED
[2023-10-24 07:27] LABS: SARS-CoV-2 -RESP PCR PANEL DETECTED
--- NOTE | 2023-10-24 08:30 | XRAY Report ---
PROCEDURE: Chest 1V INDICATIONS: dyspnea TECHNIQUE: One view of the chest was acquired. COMPARISON: . FINDINGS: Surgical changes and devices: None. Lungs and pleura: No pleural effusions or pneumothorax. Lungs are clear. Previous focal infiltrate, right middle lobe, has resolved. Mediastinum: Mediastinal contours appear normal. Heart size is normal. Bones and chest wall: No suspicious bony lesions. Overlying soft tissues appear unremarkable. IMPRESSION: No acute cardiopulmonary process. Findings are concordant with preliminary interpretation provided by [facility]. Reviewed by: Bobby Serna MD on 10/24/2023 8:29 AM PDT Approved by: Bobby Serna MD on 10/24/2023 8:29 AM PDT Station ID: [id number]
[2023-10-24 09:16] VITALS: O2SAT 91
[2023-10-24 10:57] VITALS: BP 128/82
--- NOTE | 2023-11-23 14:22 | ED Physician Documentation ---
ED Addendum - Addendum Addendum: 11/23/23 14:20 The pt was signed out to me at change of shift, pending troponin. He had presented with dyspnea in the setting of a history of both CHF and COPD. His O2 sats were 94% on arrival, and remained in the low to mid 90's on RA throughout his stay. He had received nebs and diuretics. He was feeling better on re- evaluation, and work-up was negative, including stable serial troponins, other than a positive covid test. We have discussed timeline of illness. The pt was stable for d/c home. We have discussed home management of the sx, as well as the usual indications for return. Final impression: 1. COPD exacerbation 2. CHF exacerbation 3. COVID Disposition: D/c home in stable and improved condition. 11/23/23 14:22 11/23/23 14:23 11/23/23 14:24
== END 2023-10-24 10:51 | disposition home or self-care (01) ==
LOC: EDUNIT# → ED 06:09
DX: J44.1 Chronic obstructive pulmonary disease with (acute) exacerbation (principal); I11.0 Hypertensive heart disease with heart failure; I50.9 Heart failure, unspecified; U07.1 COVID-19; I48.91 Unspecified atrial fibrillation; Z79.01 Long term (current) use of anticoagulants; E78.00 Pure hypercholesterolemia, unspecified; Z79.899 Other long term (current) drug therapy; F17.200 Nicotine dependence, unspecified, uncomplicated
CPT/HCPCS: 36415; 80053; 83735; 83880; 84484; 85025; 85610; 87633; 93005; 94640; 94664; 96374; 99284

== ENCOUNTER 2023-10-26 14:15 | Outpatient (CLI) | payer MEDICARE, MEDICAID ==
--- NOTE | 2023-10-26 14:14 | SLEEP CARE CONSULTATION ---
Information from patient questionnaire entered by Aimee Alvarez. I have reviewed and concur with the information entered by Aimee Alvarez. This document represents the service I personally performed and the decisions made by , Liyl Jay ARNP. History of Present Illness Service Date and Time: 10/26/2023 1340 Initial Walker Sleepiness Scale score: 11 (06/08/23) Current Walker Sleepiness Scale score: 12 (10/26/23) Additional HPI information: ENID HERNANDEZ returns via telephone visit for follow up and results of the recently performed polysomnography. The sleep study done on 08/14/2023 showed mild obstructive sleep apnea with an average AHI of 9 and shannan oxygen saturation of 87%. Severe supine AHI of 32.6 I explained the pathophysiology behind obstructive sleep apnea. We then spent quite a bit of time discussing different treatment options. For mild obstructive sleep apnea, surgery and oral appliance are alternatives to nasal CPAP therapy but in moderate or severe cases, nasal CPAP is the most effective and reliable treatment. I reviewed the impact of weight changes on sleep apnea and strongly recommended losing weight. After some discussion, the patient opted to go with the nasal CPAP therapy. A manual titration study will be ordered to find optimal pressure. I explained how CPAP machine works and what to expect when using the machine. Patient does not drink alcohol. Patient was cautioned about risks of drowsy driving until sleepiness symptoms resolve. Patient denies drowsy driving. Sleep Study - Results Type of Sleep Study: Polysomnography (COMPLETED 08/14/23) Prior sleep studies: No Polysomnography/Home Sleep Study results: IMPRESSION: The quality of the study is good. The patient had slightly reduced sleep efficiency due to prolonged awakening in the middle of the night. The sleep architecture was abnormal for sleep fragmentation and reduced amount of time spent in slow wave sleep (N3). Respiratory monitoring showed mild obstructive sleep apneahypopnea (AHI = 9.0) associated with frequent arousals, oxyhemoglobin desaturation and mild hypoxia (shannan oxygen saturation of 87%). The respiratory events occurred predominantly during supine sleep (supine AHI = 32.6; non-supine = 6.70). Snore was moderate to loud in intensity. There was moderate periodic leg movement of sleep not contributing to the sleep fragmentation. Cardiac rhythm was atrial fibrillation. The patient had bruxism. Allergies and Home Medications Known drug allergies: No Drug allergies reviewed: Yes Home medication list reviewed: Yes (no changes) Allergy and home medication list: Allergies No Known Drug Allergies Allergy (Verified 10/26/23 13:39) Review of Systems Review of systems same as previous: Yes (NO CHANGE) Physical Exam Vital signs obtained and entered by: AIMEE Brennan MA Height: 6 ft 1 in Weight: 260 lb Body Mass Index: 34.2 BMI Classification: Obese Impression and Plan 1. Obstructive Sleep Apnea-Hypopnea Syndrome, mild, with lowest oxygen saturation of 87%. Obviously this is the cause of the patients symptoms of unrefreshed sleep, and excessive daytime sleepiness. Positive pressure therapy could benefit hypertension, arrhythmia, depression, mood disorder, gastric reflux and COPD. As mentioned above, the patient will be started on nasal autoCPAP therapy. A manual titration study will be completed to find optimal treatment pressure. Compliance guidelines also reviewed. Because the apnea is more severe supine, I instructed to avoid sleeping supine using pillow positioning until able to start CPAP use. 2. Atrial fibrillation. He has a history of atrial fibrillation and is followed by cardiology. 3. Periodic limb movement, moderate, that did not fragment patients sleep. Periodic limb movement of sleep (PLMS) is characterized by episodes of repetitive limb movements that occur during sleep and usually involve the lower limbs. The etiology is unknown. Patient was advised that no treatment is needed at this time. If symptoms increase, then further evaluation is indicated. 4. Obesity, unspecified. Currently patients BMI is 34.2. Obesity increases the risk of apnea, CPAP pressure requirements and overall health risks especially cardiovascular and diabetes. Thus patient is advised to lose weight. * Titration study. * Attempt to lose weight. * Avoid supine sleep until using CPAP. * The patient is again cautioned about driving until sleepiness completely resolves. * Return after titration study for results and to initiate therapy. Counseling Topics: Sleeping position, Weight loss health impact Plan: Titration study and followup Visit Type: Telehealth Video Video Type: Doximity Patient Location: Home Location of Provider: Office Patient agrees and consents to this telehealth visit type: Yes Patient agrees to have their insurance billed: Yes Time Spent with Patient (minutes): 18 Provider Statement: I spent 100% of the Telehealth Video Call with the patient with greater than 50% spent counseling the patient and coordination of care.
== END 2023-10-26 14:16 | disposition home or self-care (01) ==
LOC: SC 14:15
PROVIDERS: ATTEND Nurse Practitioner Family
DX: G47.33 Obstructive sleep apnea (adult) (pediatric) (principal); I48.91 Unspecified atrial fibrillation; G47.61 Periodic limb movement disorder; E66.9 Obesity, unspecified; Z68.34 Body mass index [BMI] 34.0-34.9, adult
CPT/HCPCS: 99442

== ENCOUNTER 2023-12-02 08:00 | Outpatient (CLI) | payer MEDICARE, MEDICAID | END 2023-12-02 23:59 | disposition home or self-care (01) | LOC: LAB.N 08:00 | PROVIDERS: ATTEND Internal Medicine | DX: I48.21 Permanent atrial fibrillation (principal); Z79.01 Long term (current) use of anticoagulants ==

== ENCOUNTER 2024-06-26 09:50 | Observation (INO) ==
--- NOTE | 2024-06-26 09:59 | ED Physician Documentation ---
PD HPI DYSPNEA Stated complaint Stated Complaint: CP/SOA Chief complaint Chief Complaint: Cardiac History obtained from History obtained from: Patient and EMS History of Present Illness Timing - onset during: Rest Timing - duration: Days Timing - details: Gradual onset and Still present Inciting event(s): URI Improved by: Inhaler/neb Worsened by: Coughing Associated symptoms: Cough, Wheezing and Chest pain / discomfort (today); No Hemoptysis or Bilateral edema Recently seen: Not recently seen Meds/Allgy Home Medications Ambulatory Orders Medication Instructions Recorded Confirmed metoprolol tartrate 25 mg tablet 25 mg PO BID 06/08/23 06/26/24 montelukast 10 mg tablet 10 mg PO DAILY 06/08/23 06/26/24 albuterol sulfate 90 mcg/actuation 2 puff inhalation QID PRN 01/04/24 06/26/24 aerosol inhaler (Ventolin HFA) shortness of breath or wheezing #54 grams tiotropium bromide 2.5 2 puff inhalation DAILY PRN 01/05/24 06/26/24 mcg/actuation mist for inhalation wheezing (Spiriva Respimat) baclofen 10 mg tablet 10 mg PO BID #180 tabs 02/27/24 06/26/24 atorvastatin 40 mg tablet 40 mg PO DAILY #90 tabs 03/05/24 06/26/24 bupropion HCl 300 mg 24 hr tablet, 300 mg PO DAILY #90 tabs 03/05/24 06/26/24 extended release fluticasone 500 mcg-salmeterol 50 1 inh inhalation BID #180 ea 03/05/24 06/26/24 mcg/dose blistr powdr for inhalation albuterol sulfate 2.5 mg/3 mL See Rx Instructions .Route 06/18/24 06/26/24 (0.083 %) solution for nebulization .COMPLEX PRN shortness of breath or wheezing #75 mL gabapentin 300 mg capsule See Rx Instructions PO .COMPLEX 06/18/24 06/26/24 #360 caps lisinopril 20 2 tab PO DAILY 06/26/24 06/26/24 mg-hydrochlorothiazide 12.5 mg tablet tamsulosin 0.4 mg capsule 0.4 mg PO DAILY 06/26/24 06/26/24 warfarin 2 mg tablet 6 - 8 mg PO QPM 04/15/25 04/15/25 Allergies Allergies Allergy/AdvReac Type Severity Reaction Status Date / Time No Known Drug Allergies Allergy Verified 06/26/24 09:57 PFS Active Problems All Active Problems (Updated 06/26/24 @ 22:27 by Yobany Leyva MD) Ischemia due to increased oxygen demand (Acute) Elevated troponin (Acute) Respiratory failure (Acute) History of non-ST elevation myocardial infarction (NSTEMI) (Acute) Acute respiratory distress syndrome (ARDS) (Acute) Acute bronchitis (Acute) Hypoxia (Acute) Chest pain (Acute) Acute exacerbation of chronic obstructive pulmonary disease (Acute) Abscess of buttock, right (Acute) COPD (chronic obstructive pulmonary disease) (Chronic) Heavy cigarette smoker (Acute) Right middle lobe pulmonary nodule (Acute) Left upper lobe pulmonary nodule (Acute) Atrial fibrillation, permanent (Acute) Warfarin anticoagulation (Acute) Hypertensive cardiomyopathy (Acute) Essential hypertension (Acute) Diabetes mellitus type 2, controlled (Acute) Combined hyperlipidemia (Acute) DJD (degenerative joint disease), lumbar (Acute) DDD (degenerative disc disease), lumbar (Acute) Obstructive sleep apnea (Acute) GERD without esophagitis (Acute) Glaucoma (Acute) Onychomycosis (Acute) Tinea cruris (Acute) Medical History Medical History Herpes zoster Surgical History Surgical History 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 History of carpal tunnel surgery of left wrist H/O umbilical hernia repair H/O bilateral inguinal hernia repair S/P rotator cuff repair Bilateral H/O bilateral cataract extraction S/P hip arthroscopy ~1999, right hip debribed per patient Status post total hip replacement, left History of bilateral knee replacement Hx of tonsillectomy History of right hip replacement Family History Family History (Updated 03/11/24 @ 14:22 by Jamie Givens MD) Father CAD (coronary artery disease) CVA (cerebral vascular accident) Mother CAD (coronary artery disease) Sister Diabetes Social History Social History Smoking Status: Former smoker If you are a former smoker, when did you quit? (Date/Year): 03/14/24 Number of Years Smoked: 70 How many cigarettes a day do you smoke? 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 No coarse sounds. ), abnormal respiratory effort (labored), wheezing noted (expiratory wheezes) and no rales Cardiovascular normal heart rate noted, rhythm abnormal (irregular) and no edema Gastrointestinal abdomen soft to palpation and nontender to palpation Extremities no tenderness Neurology no focal motor deficit noted, no sensory deficits noted and speech normal Psychiatry mental status grossly normal, thought process normal and affect normal Skin skin color normal Results Vitals Vitals: Vital Signs - 24 hr 06/26/24 09:54 06/26/24 09:57 06/26/24 10:20 Temperature 36.4 C L Temperature Source Temporal Artery Scan Pulse Rate 71 Respiratory Rate 18 Blood Pressure 112/71 O2 Saturation 94 O2 Source Room air If not protocol: Oxygen Flow, liters/minute Pain Intensity 6 6 6 06/26/24 10:20 06/26/24 10:36 06/26/24 11:00 Temperature Temperature Source Pulse Rate 74 76 Respiratory Rate 20 18 Blood Pressure 108/67 O2 Saturation 86 L O2 Source Room air If not protocol: Oxygen Flow, liters/minute Pain Intensity 6 4 06/26/24 11:02 06/26/24 11:05 06/26/24 12:00 Temperature Temperature Source Pulse Rate 70 75 Respiratory Rate 19 22 Blood Pressure 121/52 L O2 Saturation 94 97 O2 Source Nasal cannula Nasal cannula If not protocol: Oxygen Flow, liters/minute 2 1 Pain Intensity 06/26/24 12:16 Temperature Temperature Source Pulse Rate 76 Respiratory Rate 20 Blood Pressure O2 Saturation O2 Source If not protocol: Oxygen Flow, liters/minute Pain Intensity Oxygen O2 Source Nasal cannula Labs Labs: Laboratory Tests 06/26/24 06/26/24 06/26/24 10:10 10:13 11:30 WBC 8.3 RBC 3.81 L Hgb 12.1 L Hct 38.1 L MCV 100.0 H MCH 31.8 H MCHC 31.8 L RDW 15.4 H Plt Count 150 MPV 10.5 Neut # (Auto) 6.3 Lymph # (Auto) 1.1 L [place] # (Auto) 0.8 Eos # (Auto) 0.1 Baso # (Auto) 0.0 Absolute Nucleated RBC 0.00 Nucleated RBC % 0.0 PT 29.0 H INR 2.7 H Sodium 136 Potassium 4.0 Chloride 102 Carbon Dioxide 30 Anion Gap 4.0 L BUN 19 Creatinine 1.2 Estimated GFR (MDRD) 58 L Glucose 114 H Calcium 8.6 Magnesium 2.0 Total Bilirubin 1.5 H AST 13 ALT 13 Alkaline Phosphatase 65 Troponin I High Sens 73.7 H* 73.5 H* B-Natriuretic Peptide 377 H Total Protein 6.9 Albumin 3.7 Globulin 3.2 Albumin/Globulin Ratio 1.2 Lipase < 10 L Procalcitonin Immunoas < 0.05 Nasal Adenovirus (PCR) NOT DETECTED Nasal B. parapertussis DNA (PCR) NOT DETECTED Nasal Coronavir 229E PCR NOT DETECTED Nasal Coronavir HKU1 PCR NOT DETECTED Nasal Coronavir NL63 PCR NOT DETECTED Nasal Coronavir OC43 PCR NOT DETECTED Nasal Enterovir/Rhinovir PCR NOT DETECTED Nasal Influenza B PCR NOT DETECTED Nasal Influenza A PCR NOT DETECTED Nasal Parainfluen 1 PCR NOT DETECTED Nasal Parainfluen 2 PCR NOT DETECTED Nasal Parainfluen 3 PCR NOT DETECTED Nasal Parainfluen 4 PCR NOT DETECTED Nasal RSV (PCR) NOT DETECTED Nasal B.pertussis DNA PCR NOT DETECTED Nasal C.pneumoniae (PCR) NOT DETECTED German Human Metapneumo PCR NOT DETECTED Nasal M.pneumoniae (PCR) NOT DETECTED Nasal SARS-CoV-2 (PCR) NOT DETECTED Rads (name of study) chest xray: Relevant Findings:: Final report received and EMP independent interpretation of test Interpretation: IMPRESSION: Cardiomegaly with increased vascularity most consistent with edema. Reviewed by: Jolie Velarde MD on 06/26/2024 10:40 AM PDT PD Medical Decision Making ED course Complexity details: reviewed results (low sats on arrival and has decreased work of breathing after several nebs but is early in developing illness and will presumedly be worse with next couple of days. Maintaining sats adequately on NC. Does not appear to be tiring. ), considered differential (COPD history with wheezing, cough and malaise most likely infectious. No notable edema and not history of CHF. Resp panel negative giving more credence to idea of bacterial br onchitis, early pneumonia. ), d/w patient, d/w family and d/w senior environmental consultant (hospitalist) Discharge Plan Discharge Patient Disposition: ED Place in Observation Condition: Stable Clinical Impression: Acute exacerbation of chronic obstructive pulmonary disease, Hypoxia, Ischemia due to increased oxygen demand Chest pain Qualifiers: Chest pain type: chest pain on breathing Qualified Code(s): R07.1 - Chest pain on breathing Acute bronchitis Qualifiers: Bronchitis organism: unspecified organism Qualified Code(s): J20.9 - Acute bronchitis, unspecified Interventions: ED Admission Assessment Last Done: 06/26/24 13:36
--- OUTSIDE RECORDS SUMMARY | 2024-06-26 10:00 | EXTERNAL MEDICAL SUMMARY RPT | Continuity of Care Document ---
Author Organization [place] Address [address] [address] Phone Care Team Providers Care Director Of Public Works Name Role Phone Unavailable Unavailable Unavailable Jamie Warren Unavailable Unavailable Medications date description facility 2024-03-28 00:00 Oxycodone [facility] 2024-03-28 00:00 Doxycycline Hyclate [facility] 2024-03-28 00:00 Nicotine [facility] 2024-03-28 00:00 Cefdinir [facility] 2024-03-28 00:00 Acetaminophen [facility] Problems date description facility 2024-03-02 13:30 Persistent atrial fibrillation [facility] 2024-03-02 13:30 Other persistent atrial fibrill [facility] 2024-03-02 13:30 penitentiary (current) use of anti coagulants [facility] 2024-03-22 16:31 Persistent atrial fibrillation [facility] 2024-03-22 16:31 Other persistent atrial fibrill [facility] 2024-03-22 16:31 rodent exterminator (current) use of anti coagulants [facility] 2024-03-28 08:04 Unspecified glaucoma [facility] 2024-03-28 08:04 Unspecified atrial fibrillation [facility] 2024-03-28 08:04 Centrilobular emphysema [facility] 2024-03-28 08:04 Cutaneous abscess of buttock Is [facility] 2024-03-28 08:04 Cellulitis, unspecified [facility] 2024-03-28 08:04 Chronic kidney disease, stage 3 a [facility] 2024-03-28 08:04 Benign prostatic hyp erplasia without lower urinary tract sym [facility] 2024-03-28 10:59 Unspecified glaucoma [facility] 2024-03-28 10:59 Unspecified atrial fibrillation [facility] 2024-03-28 10:59 Centrilobular emphysema [facility] 2024-03-28 10:59 Cutaneous abscess of buttock Is [facility] 2024-03-28 10:59 Cellulitis, unspecified [facility] 2024-03-28 10:59 Chronic kidney disease, stage 3 a [facility] 2024-03-28 10:59 Benign prostatic hyp erplasia without lower urinary tract sym [facility] 2024-03-28 11:33 Unspecified glaucoma [facility] 2024-03-28 11:33 Unspecified atrial fibrillation [facility] 2024-03-28 11:33 Centrilobular emphysema [facility] 2024-03-28 11:33 Cutaneous abscess of buttock Is [facility] 2024-03-28 11:33 Cellulitis, unspecified [facility] 2024-03-28 11:33 Chronic kidney disease, stage 3 a [facility] 2024-03-28 11:33 Benign prostatic hyp erplasia without lower urinary tract sym [facility] 2024-03-28 12:07 Unspecified glaucoma [facility] 2024-03-28 12:07 Unspecified atrial fibrillation [facility] 2024-03-28 12:07 Centrilobular emphysema [facility] 2024-03-28 12:07 Cutaneous abscess of buttock Is [facility] 2024-03-28 12:07 Cellulitis, unspecified [facility] 2024-03-28 12:07 Chronic kidney disease, stage 3 a [facility] 2024-03-28 12:07 Benign prostatic hyp erplasia without lower urinary tract sym [facility] 2024-03-28 13:27 Unspecified glaucoma [facility] 2024-03-28 13:27 Unspecified atrial fibrillation [facility] 2024-03-28 13:27 Centrilobular emphysema [facility] 2024-03-28 13:27 Cutaneous abscess of buttock Is [facility] 2024-03-28 13:27 Cellulitis, unspecified [facility] 2024-03-28 13:27 Chronic kidney disease, stage 3 a [facility] 2024-03-28 13:27 Benign prostatic hyp erplasia without lower urinary tract sym [facility] 2024-03-28 14:26 Unspecified glaucoma [facility] 2024-03-28 14:26 Unspecified atrial fibrillation [facility] 2024-03-28 14:26 Centrilobular emphysema [facility] 2024-03-28 14:26 Cutaneous abscess of buttock Is [facility] 2024-03-28 14:26 Cellulitis, unspecified [facility] 2024-03-28 14:26 Chronic kidney disease, stage 3 a [facility] 2024-03-28 14:26 Benign prostatic hyp erplasia without lower urinary tract sym [facility] 2024-03-29 07:49 Unspecified glaucoma [facility] 2024-03-29 07:49 Unspecified atrial fibrillation [facility] 2024-03-29 07:49 Centrilobular emphysema [facility] 2024-03-29 07:49 Cutaneous abscess of buttock Is [facility] 2024-03-29 07:49 Cellulitis, unspecified [facility] 2024-03-29 07:49 Chronic kidney disease, stage 3 a [facility] 2024-03-29 07:49 Benign prostatic hyp erplasia without lower urinary tract sym [facility] 2024-03-29 13:43 Unspecified glaucoma [facility] 2024-03-29 13:43 Unspecified atrial fibrillation [facility] 2024-03-29 13:43 Centrilobular emphysema [facility] 2024-03-29 13:43 Cutaneous abscess of buttock Is [facility] 2024-03-29 13:43 Cellulitis, unspecified [facility] 2024-03-29 13:43 Chronic kidney disease, stage 3 [facility] 2024-03-29 13:43 Benign prostatic hyp erplasia without lower urinary tract sym [facility] 2024-03-30 10:57 Sepsis, unspecified organism Is [facility] 2024-03-30 10:57 Unspecified glaucoma [facility] 2024-03-30 10:57 Unspecified atrial fibrillation [facility] 2024-03-30 10:57 Centrilobular emphysema [facility] 2024-03-30 10:57 Cutaneous abscess of buttock Is [facility] 2024-03-30 10:57 Chronic kidney disease, stage 3 [facility] 2024-03-30 10:57 Benign prostatic hyp erplasia without lower urinary tract [facility] 2024-03-31 22:16 rodent exterminator (current) use of anti coagulants [facility] 2024-04-02 07:52 rodent exterminator (current) use of anti coagulants [facility] 2024-04-02 07:53 rodent exterminator (current) [facility]-02 11:38 Persistent atrial fibrillation [facility] 2024-04-02 11:38 [facility]:38 [facility] 11:38 Wheezing [facility] 2024-04-02 11:38 rodent exterminator (current) use of anti coagulants [facility] 2024-04-05 11:11 Persistent atrial fibrillation [facility] 2024-04-05 11:11 Other persistent atrial fibrill ation [facility] 2024-04-05 11:11 penitentiary (current) use of anti coagulants [facility] 2024-04-06 13:34 Persistent atrial fibrillation [facility] 2024-04-06 13:34 [facility] 13:34 penitentiary (current) use of anti coagulants [facility] 2024-04-06 13:43 Persistent atrial fibrillation [facility] 2024-04-06 13:43 [facility] 13:43 Permanent atrial fibrillation [facility] 2024-04-06 13:43 penitentiary (current) use of anti coagulants [facility] 2024-04-06 13:50 Persistent atrial fibrillation [facility] 2024-04-06 13:50 Other persistent atrial fibrill [facility] 2024-04-06 13:50 Permanent atrial fibrillation [facility] 2024-04-06 13:50 penitentiary (current) use of anti coagulants [facility] 2024-04-11 13:44 Sepsis, unspecified organism Is [facility] 2024-04-11 13:44 Unspecified glaucoma [facility] 2024-04-11 13:44 Unspecified atrial fibrillation [facility] 2024-04-11 13:44 Centrilobular emphysema [facility] 2024-04-11 13:44 Cutaneous abscess of buttock Is [facility] 2024-04-11 13:44 Chronic kidney disease, stage 3 a [facility] 2024-04-11 13:44 Benign prostatic hyp erplasia without lower urinary tract sym [facility] 2024-04-24 16:09 Persistent atrial fibrillation [facility] 2024-04-24 16:09 Other persistent [facility] fibrill [facility]24-[facility]-24 16:09 [facility] 16:09 rodent exterminator (current) [facility]agulants [facility] 2024-04-26 16:50 Persistent atrial fibrillation [facility] 2024-04-26 16:50 Other persistent atrial fibrill ation [facility] 2024-04-26 16:50 Permanent atrial fibrillation [facility] 2024-04-26 16:50 rodent exterminator (current) [facility]agulants [facility] 2024-04-27 11:38 Persistent atrial fibrillation [facility] 2024-04-27 11:38 Other [facility] fibrill [facility] 2024-04-27 11:38 Permanent atrial fibrillation [facility] 2024-04-27 11:38 penitentiary (current) [facility]agulants [facility] 2024-04-27 15:00 Persistent atrial fibrillation [facility] 2024-04-27 15:00 Other persistent atrial fibrill ation [facility] 2024-04-27 15:00 [facility] 2024-04-27 15:00 penit[facility] (current) [facility]agulants [facility] 2024-04-30 13:31 Persistent atrial fibrillation [facility] 2024-04-30 13:31 [facility] 13:31 [facility] 2024-[facility]-30 13:31 rodent exterminator (current) [facility]agulants [facility] 2024-04-30 13:44 Persistent atrial fibrillation [facility] 2024-04-30 13:44 Other persistent [facility] fibrill [facility] 2024-[facility]-30 13:44 [facility] 2024-04-30 13:44 penitentiary (current) [facility]agulants [facility] 2024-04-30 13:53 Persistent atrial fibrillation [facility] 2024-04-30 13:53 Other persistent [facility] fibrill [facility] 2024-04-30 13:53 [facility] 2024-[facility]-30 13:53 penitent[facility] (current) [facility]agul[facility] 2024-04-30 14:01 Permanent atrial fibrillation [facility] 2024-04-30 14:01 penitentiary (current) [facility]agul[facility] 2024-05-07 14:04 Persistent atrial fibrillation [facility] 2024-05-07 14:04 Other persistent [facility] fibrill [facility] 2024-05-07 14:04 [facility]24-[facility]-07 14:04 rodent exterminator (current) [facility]agulants [facility] 2024-05-07 14:11 [facility] 2024-05-07 14:11 Other persistent [facility] fibrill [facility] 2024-05-07 14:11 [facility] 2024-05-07 14:11 penitentiary (current) [facility]agul[facility] 2024-05-07 14:17 [facility] 2024-05-07 14:17 [facility] 14:17 Permanent atrial fibrillation [facility] 2024-05-07 14:17 rodent exterminator (current) [facility]agulants [facility] 2024-05-07 14:20 Persistent atrial fibrillation [facility] 2024-05-07 14:20 Other [facility]24-[facility]07 14:20 Permanent atrial fibrillation [facility] 2024-05-07 14:20 penitentiary (current) [facility]agul[facility] 13:12 [facility] 13:12 Other [facility] fibrill [facility] 13:12 Permanent atrial fibrillation [facility] 2024-05-14 13:12 penitentiary (current) [facility]agul[facility] 13:21 [facility] 13:21 Other persistent [facility] fibrill [facility]24-[facility]14 13:21 Permanent atrial fibrillation [facility] [facility] 2024-05-14 13:21 penitentiary (current) use of anti coagulants [facility] 2024-05-14 13:25 Persistent atrial fibrillation [facility] 2024-05-14 13:25 Other persistent atrial fibrill ation [facility] 2024-05-14 13:25 Permanent atrial fibrillation [facility] 2024-05-14 13:25 penitentiary (current) use of anti coagulants [facility] 2024-05-28 11:09 Persistent atrial fibrillation [facility] 2024-05-28 11:09 Other persistent atrial fibrill ation [facility] 2024-05-28 11:09 Permanent atrial fibrillation [facility] 2024-05-28 11:09 rodent exterminator (current) use of anti coagulants [facility] 2024-06-14 00:00 Patient left before evaluation by physician [facility] Procedures date description facility 2024-06-14 00:00 X-ray of chest, [facility] Results/Labs test date facility value unit notes Result panel 1 INR 2024-03-28 06:38 [facility] 2.1 (missin g) (missing) Prothrombin Time 2024-03-28 06:38 [facility] 23.2 seconds (missing) Result panel 2 CT angiography 2024-03-28 06:50:07 [facility] 23.2 SECONDS (missing) Result panel 3 INR in Platelet poor plasma by Coagulation assay 2024-03-28 06:50:07 [facility] 2.1 (missing) (miss ing) Result panel 4 INR 2024-03-31 21:50 [facility] 1.5 (missing) Oral Anticoagulant Indication INR range Venous Thrombosis, P.E. 2.0 - 3.0 Mechanical Valve 2.5 - 3.5 PT - PROTHROMBIN TIME 2024-03-31 21:50 [facility] 15.9 secs Y OTHER UNKNOWN WHICH ANTICOAGULANT PATIENT TAKES PARTIAL THROMBOPLASTIN TIME 2024-03-31 21:50 [facility] 40.2 secs Y OTHER UNKNOWN WHICH ANTICOAGULANT PATIENT TAKES Result panel 5 Urine squamous epithelial cell detection 2024-06-14 20:10:07 [facility] 1-5 /hpf (missing) (miss ing) Result panel 6 Monocyte % 2024-06-14 20:27:07 [facility] 7.0 X10 ^3/uL (missing) Result panel 7 Automated blood monocyte count 2024-06-14 20:27:07 [facility] 600 /uL (missing) Result panel 8 Automated eosinophil count 2024-06-14 20:27:07 [facility] 100 /uL (missing) Result panel 9 Automated basophil count 2024-06-14 20:27:07 [facility] 100 /uL (missing) Result panel 10 CT angiography 2024-06-14 20:27:07 [facility] 42.1 SECONDS (missing) Result panel 11 INR in Platelet poor plasma by Coagulation assay 2024-06-14 20:27:07 [facility] 3.8 (missing) (miss ing) Result panel 12 Troponin I.cardiac [Mass/volume] in Serum or Plasma 2024-06-14 20:27:07 [facility] < 0.012 ng/mL (missing) (missing) Result panel 13 Natriuretic peptide.B prohormone N-Terminal [Mass/volume] in Serum or Plasma 2024-06-14 20:27:07 [facility] 8620 pg/mL (miss ing) Result panel 14 Sodium [Moles/volume] in Serum or Plasma 2024-06-14 20:27:07 [facility] 139 [facility] Result panel 15 Potassium [Moles/volume] in Serum or Plasma 2024-06-14 20:27:07 [facility] 4.3 mmol/L [facility] Result panel 16 Monocyte % 2024-06-14 20:27:07 [facility] 12.2 g/d L (missing) Result panel 17 Chloride [Moles/volume] in Serum or Plasma 2024-06-14 20:27:07 [facility] 104 mmol/L [facility] Result panel 18 Carbon dioxide, total [Moles/volume] in Serum or Plasma 2024-06-14 20:27:07 [facility] 28 mmol/L (miss ing) Result panel 19 Urea nitrogen [Mass/volume] in Serum or Plasma 2024-06-14 20:27:07 [facility] 14 mg/dL ([facility] Result panel 20 Creatinine [Mass/volume] in Serum or Plasma 2024-06-14 20:27:07 [facility] 0.98 mg/dL ([facility] Result panel 21 Glucose [Mass/volume] in Serum or Plasma 2024-06-14 20:27:07 [facility] 120 mg/dL ( issing) Result panel 22 Lactate [Mass/volume] in Serum or Plasma 2024-06-14 20:27:07 [facility] 1.2 mmol/L (m issing) Result panel 23 Calcium [Mass/volume] in Serum or Plasma 2024-06-14 20:27:07 [facility] 8.4 mg/dL ( issing) Result panel 24 Serum total bilirubin measurement (mass/volume) 2024-06-14 20:27:07 [facility] 1.8 mg/dL (missing) Result panel 25 Aspartate aminotransferase [Enzymatic activity/volume] in Serum or Plasma 2024-06-14 20:27:07 [facility] 29 IU/L ( issing) Result panel 26 Alanine aminotransferase [Enzymatic activity/volume] in Serum or Plasma 2024-06-14 20:27:07 [facility] 30 IU/L ( issing) Result panel 27 MCV (mean corpuscular volume ) determination 2024-06-14 20:27:07 [facility] 95.3 fL (mis sing) Result panel 28 Alkaline phosphatase [Enzyma tic activity/volume] in Serum or Plasma 2024-06-14 20:27:07 [facility] 69 U/L (miss ing) Result panel 29 Serum total protein measurement (mass/volume) 2024-06-14 20:27:07 [facility] 7.2 g/dL (missing) Result panel 30 Albumin [Mass/volume] in Ser um or Plasma 2024-06-14 20:27:07 [facility] 3.7 g/dL (miss ing) Result panel 31 Globulin [Mass/volume] in Serum by calculation 2024-06-14 20:27:07 [facility] 3.5 g/dL (missing) Result panel 32 Albumin/Globulin [Mass Ratio] in Serum or Plasma 2024-06-14 20:27:07 [facility] 1.1 (miss ing) (missing) Result panel 33 Influenza virus A RNA [Presence] in Upper respiratory specimen by GRISEL with probe dete 2024-06-14 20:27:07 [facility] Flu a negative (missing) (missing) Result panel 34 Influenza virus B RNA [Presence] in Upper respiratory specimen by GRISEL with probe dete 2024-06-14 20:27:07 [facility] Flu b negative (missing) (missing) Result panel 35 Respiratory syncytial virus RNA [Presence] in Nasopharynx by GRISEL with probe detection 2024-06-14 20:27:07 [facility] Negative (missing) (missing) Result panel 36 Automated neutrophil % 2024-06-14 20:27:07 [facility] 7 3.0 % (missing) Result panel 37 Monocyte percentage, automated 2024-06-14 20:27:07 [facility] 8.5 % (missing) Result panel 38 Automated eosinophil % 2024-06-14 20:27:07 [facility] 1 .8 % (missing) Result panel 39 Automated basophil % 2024-06-14 20:27:07 [facility] 1.0 % (missing) Result panel 40 Monocyte % 2024-06-14 20:27:07 [facility] 5100 /uL (missing) Result panel 41 Absolute lymphocyte [facility]24-06-14 [facility] Result panel 42 Basophils Percent Auto 2024-06-14 20:[address] [place] [address] 1.0 % (missing) Eosinophils Percent Auto 2024-06-14 20:[address] [place] [address] 1. 8 % (missing) Basophils Absolute Auto 2024-06-14 20:[address] [place] [address] 100 /ul (missing) Eosinophils Absolute Auto 2024-06-14 20:[address] [place] [address] 1 00 /ul (missing) Lymphocytes Absolute Auto 2024-06-14 20:[address] [place] [address] 1 100 /ul (missing) Hemoglobin 2024-06-14 20:[address] [place] [address] 12.2 g/dl (missing) Red Cell Distribution Width 2024-06-14 20:[address] [place] [address] 15.7 % (missing) Lymphocytes Percent Auto 2024-06-14 :[address] [place] [address] 15 .7 % (missing) Platelet Count 2024-06-14 20:[address] [place] [address] 174 x1 0 3/ul (missing) Red Blood Cell Count 2024-06-14 20:[address] [place] [address] 3.82 x10 6/ul (missing) Mean Corpuscular Hemoglobin 2024-06-14 20:[address] [place] [address] 32.0 pg (missing) Mean Corpuscular HGB Conc 2024-06-14 20:[address] [place] [address] 3 3.6 % (missing) Hematocrit 2024-06-14 20:[address] [place] [address] 36.4 % (missing) Neutrophils Absolute Auto 2024-06-14 20:[address] [place] [address] 5 100 /ul (missing) Monocytes Absolute Auto 2024-06-14 20:42 [facility] 600 /ul (missing) White Blood Cell Count 2024-06-14 20:[address] [place] [address] 7.0 x10 3/ul (missing) Neutrophils Percent Auto 2024-06-14 20:[address] [place] [address] 73 .0 % (missing) Monocytes Percent Auto 2024-06-14 20:[address] [place] [address] 8.5 % (missing) Mean Corpuscular Volume 2024-06-14 20:[address] [place] [address] 95. 3 fl (missing) Result panel 43 INR 2024-06-14 20:[address] [place] [address] 3.8 (in g) (missing) Prothrombin Time 2024-06-14 20:[address] [place] [address] 42.1 seconds Comment If patient is on warfarin Result panel 44 WBC Urine 2024-06-14 20:[address] [place] [address] 0-1/HPF (missing) (missing) Squamous Epithelial Cell Urine 2024-06-14 20:[address] [place] [address] 1-5 /HPF (missing) (missing) Urine Volume 2024-06-14 20:[address] [place] [address] 10mL (spun) (missing) Urine Source: Urine, Clean Catch Culture if Indicated? Y Culture Indicated Urine 2024-06-14 20:[address] [place] [address] Cult Not Indicated (missing) (missing) Bacteria Urine 2024-06-14 20:[address] [place] [address] Few (2-10) (missing) (missing) RBC Urine 2024-06-14 20:[address] [place] [address] None Seen (missing) (missing) Result panel 45 Estimated Glomerular Filt Rate 2024-06-14 21:00 [facility] > 60 ml/min Reported eGFR is based the CKD-EPI 2020 equation that does not use a race coefficient. An eGFR below 60 mL/min/1.73m2 suggests that some kidney damage has occurred, and indicative of chronic kidney disease if persisting greater than 3 months. An eGFR less than 15 is indicative of kidney failure. Creatinine 2024-06-14 21:00 [facility] 0.98 mg/dl (missing) Albumin Globulin Ratio 2024-06-14 21:00 [facility] 1.1 (missing) (missing ) Lactate (Lactic Acid) 2024-06-14 21:00 [facility] 1.2 mmol/l Yes/No q uery for Sepsis Lactate Rule Y Bilirubin Total 2024-06-14 21:00 [facility] 1.8 m g/dl (missing) Chloride 2024-06-14 21:00 [facility] 104 mmol/l (missing) Glucose 2024-06-14 21:00 [facility] 120 mg/dl Social History date description facility 2024-06-14 00:00 Ex-smoker (finding) [facility] Vital Signs date measurement value units 2024-03-28 00:00 BP_diastolic 75 mmHg 2024-03-28 00:00 BP_systolic 128 mmHg 2024-03-28 00:00 heart_rate 87 /min 2024-03-28 00:00 o2_saturation 94 % 2024-03-28 00:00 respiration_rate 16 /min 2024-03-28 00:00 temperature_metric 36.72 C 2024-03-28 00:00 temperature_standard 98.1 F 2024-06-14 00:00 BMI 34.2 kg/m2 2024-06-14 00:00 BP_diastolic 66 mmHg 2024-06-14 00:00 BP_systolic 147 mmHg 2024-06-14 00:00 heart_rate 79 /min 2024-06-14 00:00 height_metric 185.42 cm 2024-06-14 00:00 height_standard 73 in 2024-06-14 00:00 o2_saturation 94 % 2024-06-14 00:00 respiration_rate 28 /min 2024-06-14 00:00 temperature_metric 36.39 C 2024-06-14 00:00 temperature_standard 97.5 F 2024-06-14 00:00 weight_metric 117.93 kg 2024-06-14 00:00 weight_standard 259.99 lb
[2024-06-26] MEDS: MORPHINE 10 MG/ML VIAL IVP STA (10:20)
[2024-06-26] MEDS: KETOROLAC 15 MG/ML VIAL IVP STA ×2 (10:20→16:33)
[2024-06-26 10:24] LABS: BASOPHILS % (AUTO) 0.5 %; EOSINOPHILS # (AUTO) 0.1 10^3/uL (0.0-0.7); EOSINOPHILS % (AUTO) 1.7 %; HCT - HEMATOCRIT 38.1 % (42.0-52.0); HGB - HEMOGLOBIN 12.1 g/dL (14.0-18.0); LYMPHOCYTES # (AUTO) 1.1 10^3/uL (1.5-3.5); LYMPHOCYTES % (AUTO) 13.2 %; MEAN CORPUSCULAR HEMOGLOBIN 31.8 pg (27.0-31.0); MEAN CORPUSCULAR HGB CONC 31.8 g/dL (32.0-36.0); MEAN PLATELET VOLUME 10.5 fL (7.4-11.4); MONOCYTES # (AUTO) 0.8 10^3/uL (0.0-1.0); MONOCYTES % (AUTO) 9.2 %; NEUTROPHILS # (AUTO) 6.3 10^3/uL (1.5-6.6); PLT - PLATELET COUNT 150 10^3/uL (130-450); RED BLOOD COUNT 3.81 10^6/uL (4.70-6.10); RED CELL DISTRIBUTION WIDTH 15.4 % (12.0-15.0); WHITE BLOOD COUNT 8.3 x10^3/uL (4.8-10.8)
[2024-06-26] MEDS: IPRATROPIUM/ALBUTEROL 3 ML NEB INH STA (10:31)
[2024-06-26 10:32] LABS: ALBUMIN 3.7 g/dL (3.2-5.5); ALBUMIN/GLOBULIN RATIO 1.2 (1.0-2.2); ALKALINE PHOSPHATASE 65 IU/L (42-121); ALT ALANINE AMINOTRANSFERASE 13 IU/L (10-60); AST ASPARTATE AMINOTRANSFERASE 13 IU/L (10-42); BILIRUBIN,TOTAL 1.5 mg/dL (0.2-1.0); BUN - BLOOD UREA NITROGEN 19 mg/dL (6-20); CALCIUM 8.6 mg/dL (8.5-10.3); CARBON DIOXIDE - CO2 30 mmol/L (21-32); CHLORIDE 102 mmol/L (101-111); CREATININE 1.2 mg/dL (0.6-1.3); GFR - MDRD 58 (>89); GLUCOSE 114 mg/dL (74-104); SODIUM 136 mmol/L (135-145); TOTAL PROTEIN 6.9 g/dL (6.4-8.9)
[2024-06-26 10:37] LABS: LIPASE < 10 U/L (11-82)
--- NOTE | 2024-06-26 10:41 | XRAY Report ---
PROCEDURE: XR Chest 1V INDICATIONS: dyspnea, cough, copd TECHNIQUE: One view of the chest was acquired. COMPARISON: Chest x-ray 10/24/2023 FINDINGS: Surgical changes and devices: None. Lungs and pleura: Increased pulmonary vascularity. Mediastinum: Mediastinal contours appear normal. Heart size is enlarged.. Bones and chest wall: No suspicious bony lesions. Overlying soft tissues appear unremarkable. IMPRESSION: Cardiomegaly with increased vascularity most consistent with edema. Reviewed by: Jolie Velarde MD on 06/26/2024 10:40 AM PDT Approved by: Jolie Velarde MD on 06/26/2024 10:40 AM PDT Station ID: [id number]
[2024-06-26] MEDS: AZITHROMYCIN 250 MG TABLET PO STA (10:58)
[2024-06-26] MEDS: cefTRIAXone 1 GM VIAL IVP STA (10:58)
[2024-06-26 11:02] LABS: B. PARAPERTUSSIS- RESP PCR PAN NOT DETECTED; B. PERTUSSIS- RESP PCR PANEL NOT DETECTED; CORONAVIRUS 229E-RESP PCR NOT DETECTED; CORONAVIRUS HKU1-RESP PCR NOT DETECTED; CORONAVIRUS NL63-RESP PCR NOT DETECTED; CORONAVIRUS OC43-RESP PCR NOT DETECTED; HUMAN METAPNEUMOVIRUS NOT DETECTED; INFLUENZA A- RESP PCR PANEL NOT DETECTED; INFLUENZA B - RESP PCR PANEL NOT DETECTED; PARAINFLUENZA VIRUS 1 NOT DETECTED; PARAINFLUENZA VIRUS 2 NOT DETECTED; PARAINFLUENZA VIRUS 4 NOT DETECTED; RHINOVIRUS/ENTEROVIRUS NOT DETECTED; RSV- RESP PCR PANEL NOT DETECTED; SARS-CoV-2 -RESP PCR PANEL NOT DETECTED
[2024-06-26 11:03] LABS: C. PNEUMONIAE- RESP PCR PANEL NOT DETECTED; M. PNEUMONIAE- RESP PCR PANEL NOT DETECTED
[2024-06-26] MEDS: ALBUTEROL NEB 2.5 MG/3 ML INH STA ×2 (11:03→12:13)
[2024-06-26 11:17] LABS: INR 2.7 (0.8-1.2)
[2024-06-26] MEDS: DEXAMETHASONE 10 MG/ML VIAL IVP STA (11:55)
[2024-06-26] MEDS ORDERED: ONDANSETRON 4 MG/2 ML VIAL IVP PRN (13:59)
[2024-06-26] MEDS ORDERED: ONDANSETRON ODT 4 MG TABLET TL PRN (13:59)
[2024-06-26] MEDS ORDERED: SODIUM CHLORIDE FLUSH 0.9% 10 ML SYRINGE IVP PRN (13:59)
--- NOTE | 2024-06-26 14:05 | PHARMACY PROGRESS NOTE ---
Best Possible Medication History Admit Date and Time: 06/26/24 160420 Home Medications Medication Instructions Recorded Confirmed Type metoprolol tartrate 25 mg tablet 25 mg PO BID 06/08/23 06/26/24 History montelukast 10 mg tablet 10 mg PO DAILY 06/08/23 06/26/24 History albuterol sulfate 90 mcg/actuation 2 puff inhalation QID PRN 01/04/24 06/26/24 Rx aerosol inhaler (Ventolin HFA) shortness of breath or wheezing #54 grams tiotropium bromide 2.5 2 puff inhalation DAILY PRN 01/05/24 06/26/24 History mcg/actuation mist for inhalation wheezing (Spiriva Respimat) baclofen 10 mg tablet 10 mg PO BID #180 tabs 02/27/24 06/26/24 Rx atorvastatin 40 mg tablet 40 mg PO DAILY #90 tabs 03/05/24 06/26/24 Rx bupropion HCl 300 mg 24 hr tablet, 300 mg PO DAILY #90 tabs 03/05/24 06/26/24 Rx extended release fluticasone 500 mcg-salmeterol 50 1 inh inhalation BID #180 ea 03/05/24 06/26/24 Rx mcg/dose blistr powdr for inhalation albuterol sulfate 2.5 mg/3 mL See Rx Instructions .Route 06/18/24 06/26/24 Rx (0.083 %) solution for nebulization .COMPLEX PRN shortness of breath or wheezing #75 mL gabapentin 300 mg capsule See Rx Instructions PO .COMPLEX 06/18/24 06/26/24 Rx #360 caps lisinopril 20 2 tab PO DAILY 06/26/24 06/26/24 History mg-hydrochlorothiazide 12.5 mg tablet tamsulosin 0.4 mg capsule 0.4 mg PO DAILY 06/26/24 06/26/24 History warfarin 2 mg tablet 6 - 8 mg PO QPM 06/26/24 06/26/24 History Processed by: Pharmacy (Medication reconciliation completed by [employer]) Medications reviewed in ED?: No Medication History completed: Yes Patient Interview: Completed Secondary Source(s): Insurance records [facility] Statement: As the person ultimately responsible for medication therapy, providers are able to order a medication from an existing home medication list in [facility] via the "Reconcile Routine" prior to Confirmation of that medication by wind farm support specialist. Such practice is discouraged except when the physician, in their clinical judgment, deems that a medical need exists for a medication without regard to previous use.
[2024-06-26] MEDS: SODIUM CHLORIDE FLUSH 0.9% 10 ML SYRINGE IVP SCH (15:55)
--- NOTE | 2024-06-26 16:10 | HISTORY & PHYSICAL EXAMINATION ---
Chief Complaint Chief Complaint Chief Complaint: shortness of breath and chest pain History of Present Illness Admitted From Admitted From:: Home History Obtained From Records Reviewed: [facility] History obtained from: Patient Exam Limitations: Patient is alert and oriented x3 and able to answer questions History of Present Illness HPI Comment/Other: Detail: 84-year-old male with a history of COPD, atrial fibrillation, NSTEMI [place], and [id number] tobacco smoking presents to the ED with shortness of breath and chest pain. He reports productive cough with brown sputum that has worsened recently. He reports the chest pain is present with cough and breathing, not on exertion. He denies fever, chills, or body aches. The patient's chest X-ray showed increased vascularity and cardiomegaly associated with edema. An EKG revealed patient's long-standing atrial fibrillation and right bundle branch block unchanged from his previous EKGs in 2023 and 2019. James complained of abdominal pain since an umbilical hernia repair in the past. He described chest pain associated with breathing and coughing with tenderness on palpation. POLST was discussed with the patient and he requested DNR/DNI and for family member to make decisions about his care. Meds/Allgy Home Medications Ambulatory Orders Medication Instructions Recorded Confirmed metoprolol tartrate 25 mg tablet 25 mg PO BID 06/08/23 06/26/24 montelukast 10 mg tablet 10 mg PO DAILY 06/08/23 06/26/24 albuterol sulfate 90 mcg/actuation 2 puff inhalation QID PRN 01/04/24 06/26/24 aerosol inhaler (Ventolin HFA) shortness of breath or wheezing #54 grams tiotropium bromide 2.5 2 puff inhalation DAILY PRN 01/05/24 06/26/24 mcg/actuation mist for inhalation wheezing (Spiriva Respimat) baclofen 10 mg tablet 10 mg PO BID #180 tabs 02/27/24 06/26/24 atorvastatin 40 mg tablet 40 mg PO DAILY #90 tabs 03/05/24 06/26/24 bupropion HCl 300 mg 24 hr tablet, 300 mg PO DAILY #90 tabs 03/05/24 06/26/24 extended release fluticasone 500 mcg-salmeterol 50 1 inh inhalation BID #180 ea 03/05/24 06/26/24 mcg/dose blistr powdr for inhalation albuterol sulfate 2.5 mg/3 mL See Rx Instructions .Route 06/18/24 06/26/24 (0.083 %) solution for nebulization .COMPLEX PRN shortness of breath or wheezing #75 mL gabapentin 300 mg capsule See Rx Instructions PO .COMPLEX 06/18/24 06/26/24 #360 caps lisinopril 20 2 tab PO DAILY 06/26/24 06/26/24 mg-hydrochlorothiazide 12.5 mg tablet tamsulosin 0.4 mg capsule 0.4 mg PO DAILY 06/26/24 06/26/24 warfarin 2 mg tablet 6 - 8 mg PO QPM 06/26/24 06/26/24 Allergies Allergies Allergy/AdvReac Type Severity Reaction Status Date / Time No Known Drug Allergies Allergy Verified 06/26/24 09:57 [facility] Active Problems All Active Problems (Updated 06/26/24 @ 15:34 by Sandra Olvera) Elevated troponin (Acute) Respiratory failure (Acute) History of non-ST elevation myocardial infarction (NSTEMI) (Acute) Acute respiratory distress syndrome (ARDS) (Acute) Acute bronchitis (Acute) Hypoxia (Acute) Chest pain (Acute) Acute exacerbation of chronic obstructive pulmonary disease (Acute) Abscess of buttock, right (Acute) COPD (chronic obstructive pulmonary disease) (Chronic) Heavy cigarette smoker (Acute) Right middle lobe pulmonary nodule (Acute) Left upper lobe pulmonary nodule (Acute) Atrial fibrillation, permanent (Acute) Warfarin anticoagulation (Acute) Hypertensive cardiomyopathy (Acute) Essential hypertension (Acute) Diabetes mellitus type 2, controlled (Acute) Combined hyperlipidemia (Acute) DJD (degenerative joint disease), lumbar (Acute) DDD (degenerative disc disease), lumbar (Acute) Obstructive sleep apnea (Acute) GERD without esophagitis (Acute) Glaucoma (Acute) Onychomycosis (Acute) Tinea cruris (Acute) Medical History Medical History Herpes zoster Surgical History Surgical History 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 History of carpal tunnel surgery of left wrist H/O umbilical hernia repair H/O bilateral inguinal hernia repair S/P rotator cuff repair Bilateral H/O bilateral cataract extraction S/P hip arthroscopy ~1999, right hip debribed per patient Status post total hip replacement, left History of bilateral knee replacement Hx of tonsillectomy History of right hip replacement Family History Family History (Updated 03/11/24 @ 14:22 by Jamie Givens MD) Father CAD (coronary artery disease) CVA (cerebral vascular accident) Mother CAD (coronary artery disease) Sister Diabetes Social History Social History Smoking Status: Former smoker If you are a former smoker, when did you quit? (Date/Year): 03/14/24 Number of Years Smoked: 70 How many cigarettes a day do you smoke? 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 Service: No POLST Patient has POLST: No Review of Systems Status of ROS: 10 or more systems reviewed and unremarkable except as noted in history and below Constitutional Reports: Fatigue; Denies: Fever, Chills, Malaise or Weakness Ears, nose, mouth, and throat Denies: Neck pain Cardiovascular Reports: Irregular heart rate, chest pain and shortness of breath with exertion Respiratory Reports: Shortness of breath, Cough, Sputum production and Wheezing Gastrointestinal Reports: Abdominal pain and Abdominal distention; Denies: Nausea, Vomiting or Poor appetite Genitourinary Denies: Painful urination, Incontinence or Urinary frequency Musculoskeletal Denies: Back pain, Neck pain or Extremity pain Endocrine Reports: Fatigue Allergic/Immunologic Reports: Wheezing Prior Level of Functionality: Able-bodied, walking without assistance. Exam Exam Vital Signs: Vital Signs x48h Temp Pulse Pulse Resp BP BP Pulse Ox 06/26/24 16:26 79 20 06/26/24 15:54 36.7 C 84 24 121/70 94 06/26/24 14:23 36.3 C L 82 22 124/76 94 06/26/24 13:36 74 22 123/76 93 06/26/24 12:16 76 20 06/26/24 12:00 75 22 121/52 L 97 06/26/24 11:05 70 19 06/26/24 11:02 94 06/26/24 11:00 76 18 108/67 86 L 06/26/24 10:36 74 20 O2 Flow Rate 06/26/24 16:26 06/26/24 15:54 06/26/24 14:23 06/26/24 13:36 06/26/24 12:16 06/26/24 12:00 1 06/26/24 11:05 06/26/24 11:02 2 06/26/24 11:00 06/26/24 10:36 Constitutional normal general appearance [facility] normocephalic Neck/C-Spine visual inspection normal Chest inspection of chest normal and palpation of chest abnormal (reproducible chest pain on palpation) Respiratory breath sounds equal bilaterally, abnormal respiratory effort (labored), auscultation abnormal (diminished breath sound) and wheezing noted (expiratory wheezes) Cardiovascular normal heart rate noted and rhythm abnormal (irregular) Gastrointestinal abdomen normal to inspection, abdomen firm to palpation (rigid) (prior hernia repair RLQ), tender to palpation (moderate) and (RLQ) and normoactive bowel sounds Back/Pelvis spine normal to inspection Extremities normal to inspection Neurology speech normal Psychiatry mental status grossly normal, oriented x3, thought process normal, cooperative and affect normal Skin skin color normal, no rash and no lesions Conclusion/Plan Problem List (1) Respiratory failure: Plan: Patient presented to ED at 86% O2 saturation on room air and in acute distress with dyspnea and chest pressure. Chest X-ray revealed cardiomegaly and increased vascularly. Duonebs QID will be administered and status rechecked 06/27. His respiratory failure is acute on chronic hypoxic respiratory failure, secondary to acute exacerbation of COPD Qualifiers: Chronicity: acute on chronic Respiratory failure complication: hypoxia Qualified Code(s): J96.21 - Acute and chronic respiratory failure with hypoxia (2) Acute exacerbation of chronic obstructive pulmonary disease: Plan: Patient's chronic COPD has worsened with increased coughing, chest pressure, and sputum production. He manages at home with Spiriva 2 puffs daily PRN, and fluticasone 500 mcg salmeterol 50mcg/dose inhalation BID. In ED, patient was given Decadron 10mg IV, Duoneb 3mL once, and albuterol 2.5mg once. On admission, patient will be started on prednisone 40mg and Azithromycin 500mg daily starting 06/27. I have also started DuoNebs RT 4 times daily and albuterol every 4 as needed Guaifenesin 1200 mg twice daily (3) Atrial fibrillation, permanent: Plan: Patient's atrial fibrillation is currently treated with metoprolol tartrate 25mg BID and warfarin 6-8mg PO QPM. Consult to clinical pharmacist for anticoagulant management was initiated. Patient's PT and INR were elevated at 29.0 secs and 2.7 respectively. Recheck 06/27. (4) Elevated troponin: Plan: Troponin values were significantly elevated in ED at 73.7 ng/L and 73.5 ng/L. He has a history of NSTEMI myocardial infarction in 2019. Recheck patient's troponin Q3 until downtrending. His chest pain is noncardiac as it is reproducible with palpation and worse with breathing and coughing. Ordered one-time dose of Toradol and as needed Tylenol Likely type II non-STEMI, manage respiratory failure as above Plan Admit to Med/Surg unit for treatment of respiratory failure and acute on chronic COPD exacerbation. Patient was given Decadron 10mg IV once and Rocephin 1gm IV, and albuterol 2.5mg once. Azithromycin 500mg has been administered for possible pneumonia coverage based on patient's risk factors including chronic COPD, [id number] tobacco smoking history, and age. Full code He names his infantryman Bridget as his surrogate decision-maker, but he does also have a nephew that he is close to Lab Results Lab results reviewed: Yes 06/26/24 10:13 06/26/24 10:13 Diagnostic Imaging Results Diagnostic Imaging Results: positive Final report reviewed Diagnostic Imaging Results Comments: Chest x-ray as described above EKG Results EKG Interpreted Independently: No EKG Comparison: Unchanged from prior EKG
[2024-06-26] MEDS: ALBUTEROL NEB 2.5 MG/3 ML INH PRN (16:25)
[2024-06-26] MEDS: IPRATROPIUM/ALBUTEROL 3 ML NEB INH SCH (18:17)
[2024-06-26] MEDS: ACETAMINOPHEN 325 MG TABLET PO PRN (20:47)
[2024-06-26] MEDS: guaiFENesin 600 MG TABLET PO SCH (20:47)
[2024-06-27 06:06] LABS: BASOPHILS % (AUTO) 0.1 %; EOSINOPHILS % (AUTO) 0.1 %; HCT - HEMATOCRIT 36.2 % (42.0-52.0); LYMPHOCYTES # (AUTO) 0.6 10^3/uL (1.5-3.5); LYMPHOCYTES % (AUTO) 7.2 %; MEAN CORPUSCULAR HEMOGLOBIN 32.3 pg (27.0-31.0); MEAN CORPUSCULAR HGB CONC 33.1 g/dL (32.0-36.0); MEAN CORPUSCULAR VOLUME 97.3 fL (80.0-94.0); MEAN PLATELET VOLUME 10.5 fL (7.4-11.4); MONOCYTES # (AUTO) 0.7 10^3/uL (0.0-1.0); MONOCYTES % (AUTO) 8.1 %; NEUTROPHILS # (AUTO) 7.4 10^3/uL (1.5-6.6); PLT - PLATELET COUNT 152 10^3/uL (130-450); RED BLOOD COUNT 3.72 10^6/uL (4.70-6.10); RED CELL DISTRIBUTION WIDTH 15.2 % (12.0-15.0); WHITE BLOOD COUNT 8.9 x10^3/uL (4.8-10.8)
[2024-06-27 06:17] LABS: CALCIUM 8.8 mg/dL (8.5-10.3); CREATININE 1.2 mg/dL (0.6-1.3); POTASSIUM 4.2 mmol/L (3.5-4.5)
[2024-06-27 08:12] VITALS: TEMP 98.8
[2024-06-27] MEDS: oxyCODONE 5 MG TABLET PO PRN (08:38)
[2024-06-27] MEDS: AZITHROMYCIN 250 MG TABLET PO SCH (08:39)
[2024-06-27] MEDS: predniSONE 20 MG TABLET PO SCH (08:39)
--- NOTE | 2024-06-27 12:02 | Discharge Summary ---
"Discharge Summary Admit Date: 06/26/24 Discharge Date: 06/27/24 Discharging Provider: Aarti Koch PA-C Primary Care Provider: unknown, soon to be assigned at [facility] in [place] Code Status: Attempt Resuscitation DIAGNOSES Discharge Diagnoses with Status of Each Condition: Acute hypoxic respiratory failureon room air, has passed oxygen desaturation exercise study. Acute exacerbation of COPDdischarged home to complete a 5-day course of steroids and a 3-day course of azithromycin continue inhalers and nebulized albuterol as needed at home Atrial fibrillationanticoagulated on warfarin treated with metoprolol resume on discharge home Elevated troponinlikely type II non-STEMI. See troponins below. HPI History of Present Illness: 84-year-old male with a history of COPD, atrial fibrillation, NSTEMI [place], and [id number] tobacco smoking presents to the ED with shortness of breath and chest pain. He reports productive cough with brown sputum that has worsened recently. He reports the chest pain is present with cough and breathing, not on exertion. He denies fever, chills, or body aches. The patient's chest X-ray showed increased vascularity and cardiomegaly associated with edema. An EKG revealed patient's long-standing atrial fibrillation and right bundle branch block unchanged from his previous EKGs in 2023 and 2019. James complained of abdominal pain since an umbilical hernia repair in the past. He described chest pain associated with breathing and coughing with tenderness on palpation. POLST was discussed with the patient and he requested DNR/DNI and for family member to make decisions about his care. CONSULTS | PROCEDURES Procedures: CXR:Cardiomegaly with increased vascularity most consistent with edema. HOSPITAL COURSE Hospital Course: Patient presented to the ED with an oxygen saturation of 86% on room air in acute distress with dyspnea and chest pressure. He has a history of chronic COPD treated at home with Spiriva and fluticasone/salmeterol. He was given steroids and DuoNeb treatments in the ED and started on prednisone 40 mg daily and azithromycin 500 mg daily for course of 3 days. Overnight he was weaned onto room air and did well. There is regards to his atrial fibrillation he is anticoagulated and had an INR of 2.7. He takes warfarin. He is on metoprolol 25 mg twice daily and this was continued while he was admitted. His troponin values were elevated on admission at 73.7 and 73.5. They downtrended without intervention.Laboratory Tests 06/26/24 06/26/24 06/26/24 11:30 16:49 19:37 Troponin I High Sens 73.5 H* 73.3 H* 72.1 H* 06/26/24 22:30 Troponin I High Sens 68.6 H* ALLERGIES Allergies Allergy/AdvReac Type Severity Reaction Status Date / Time No Known Drug Allergies Allergy Verified 06/26/24 09:57 MEDICATIONS Ambulatory Orders Medication Instructions Recorded Confirmed metoprolol tartrate 25 mg tablet 25 mg PO BID 06/08/23 06/26/24 montelukast 10 mg tablet 10 mg PO DAILY 06/08/23 06/26/24 tiotropium bromide 2.5 2 puff inhalation DAILY PRN 01/05/24 06/26/24 mcg/actuation mist for inhalation wheezing (Spiriva Respimat) baclofen 10 mg tablet 10 mg PO BID #180 tabs 02/27/24 06/26/24 atorvastatin 40 mg tablet 40 mg PO DAILY #90 tabs 03/05/24 06/26/24 bupropion HCl 300 mg 24 hr tablet, 300 mg PO DAILY #90 tabs 03/05/24 06/26/24 extended release fluticasone 500 mcg-salmeterol 50 1 inh inhalation BID #180 ea 03/05/24 06/26/24 mcg/dose blistr powdr for inhalation gabapentin 300 mg capsule See Rx Instructions PO .COMPLEX 06/18/24 06/26/24 #360 caps lisinopril 20 2 tab PO DAILY 06/26/24 06/26/24 mg-hydrochlorothiazide 12.5 mg tablet tamsulosin 0.4 mg capsule 0.4 mg PO DAILY 06/26/24 06/26/24 warfarin 2 mg tablet 6 - 8 mg PO QPM 06/26/24 06/26/24 albuterol sulfate 2.5 mg/3 mL See Rx Instructions .Route 06/27/24 06/26/24 (0.083 %) solution for nebulization .COMPLEX PRN shortness of breath or wheezing #180 mL albuterol sulfate 90 mcg/actuation 2 puff inhalation QID PRN 06/27/24 06/26/24 aerosol inhaler (Ventolin HFA) shortness of breath or wheezing #54 grams azithromycin 250 mg tablet 500 mg (2 x 250 mg) PO DAILY #2 06/27/24 tabs guaifenesin 600 mg tablet, 1,200 mg (2 x 600 mg) PO BID #60 06/27/24 extended release 12 hr (Mucinex) tabs prednisone 20 mg tablet 40 mg (2 x 20 mg) PO DAILYWM #6 06/27/24 tabs PHYSICAL EXAM AT DISCHARGE Vital Signs: Vital Signs x48h Temp Pulse Pulse Resp BP Pulse Ox 06/27/24 12:13 37.1 C 86 18 139/83 H 97 06/27/24 12:05 95 06/27/24 10:39 90 20 General Appearance: positive No acute distress and Alert Eyes Bilateral: positive Normal inspection ENT: positive ENT inspection nml Neck: positive Nml inspection Respiratory: positive No respiratory distress and Breath sounds nml; negative Wheezes, Rales or Rhonchi Cardiovascular: positive Irregularly irregular Abdomen: positive No distention Back: positive Nml inspection Skin: positive Color nml Extremities: positive Non-tender and No pedal edema Neurologic/Psychiatric: positive Oriented x3 LABS 06/27/24 05:13 06/27/24 05:13 FOLLOW UP Follow Up: PCP in [place] (new provider- missed appointment on 06/26 due to admission) 7- 10d. TIME SPENT Time Spent in Discharge (Minutes): 45 Discharge Plan Discharge Patient Disposition: 01 Home, Self Care Condition: Stable Prescriptions: New azithromycin 250 mg Tablet 500 mg PO DAILY Qty: 2 0RF Rx Instructions: Take 2 tabs on 06/28 in the AM guaifenesin [Mucinex] 600 mg Tablet Extended Release 12hr 1,200 mg PO BID Qty: 60 0RF prednisone 20 mg Tablet 40 mg PO DAILYWM Qty: 6 0RF Continued Spiriva Respimat 2.5 mcg/actuation mist 2 puff inhalation DAILY PRN (Reason: wheezing) Patient Comments: Inhale 2 puff as directed once a day baclofen 10 mg tablet 10 mg PO BID Qty: 180 3RF gabapentin 300 mg capsule See Rx Instructions PO .COMPLEX Qty: 360 0RF Rx Instructions: 1 cap AM, 1 cap PM, 2 caps HS orally; montelukast 10 MG tablet 10 mg PO DAILY Rx Instructions: QD metoprolol tartrate 25 MG tablet 25 mg PO BID lisinopril-hydrochlorothiazide 20-12.5 mg tablet 2 tab PO DAILY Rx Instructions: replaces plain lisinopril, stop amlodipine tamsulosin 0.4 mg capsule 0.4 mg PO DAILY warfarin 2 mg tablet 6 - 8 mg PO QPM Protocol: Dose Management Condition: Tuesday Dose/Route: 8 mg Instruction: 4 x 2 mg tablets Condition: Tuesday Dose/Route: 10 mg Instruction: 5 x 2 mg tablets Condition: Tuesday Dose/Route: 8 mg Instruction: 4 x 2 mg tablets Condition: Tuesday Dose/Route: 8 mg Instruction: 4 x 2 mg tablets Condition: Dose/Route: 8 mg Instruction: 4 x 2 mg tablets Condition: Tuesday Dose/Route: 8 mg Instruction: 4 x 2 mg tablets Condition: Tuesday Dose/Route: 8 mg Instruction: 4 x 2 mg tablets Protocol Text: Adjustment Start Date: Tuesday05/14/24 INR Value: 2.3 INR Date: 05/14/24 Recheck Date: 05/28/24 Patient Comments: 8mg for 6 days, 6mg on Rx Instructions: as directed based on INR. 6mg on , 8mg all other days albuterol sulfate [Ventolin HFA] 90 mcg/actuation HFA aerosol inhaler 2 puff inhalation QID PRN (Reason: shortness of breath or wheezing) Qty: 54 3RF atorvastatin 40 mg tablet 40 mg PO DAILY Qty: 90 3RF bupropion HCl 300 mg tablet extended release 24 hr 300 mg PO DAILY Qty: 90 3RF Rx Instructions: QD fluticasone propion-salmeterol 500-50 mcg/dose blister with device 1 inh inhalation BID Qty: 180 3RF Changed albuterol sulfate 2.5 mg /3 mL (0.083 %) solution for nebulization See Rx Instructions .ROUTE .COMPLEX PRN (Reason: shortness of breath or wheezing) Qty: 180 2RF Rx Instructions: Use 1 vial as directed every four hours PRN Activity Restrictions: Activity as Tolerated Diet: Regular Health Concerns: You came into the hospital because you are having difficulty breathing. Your oxygen saturation was 86% on room air. You were placed on a small amount of oxygen and quickly weaned off of this overnight. You were given treatment with steroids and nebulizers to help you wean off of the oxygen. As you go home you will be on oral steroid medication to help relieve inflammation in your lungs, medication to help break up mucus in your lungs, 1 more dose of antibiotics, and continue nebulizer treatments. While you are here we did test to make sure that your oxygen saturation did not go too low with walking and we also did test to make sure that your blood pressure and heart rate stayed normal with sitting and standing. You have probably added years of life and quality to your life by stopping smoking. I would continue to encourage you never to smoke again. We are encouraging you to keep your appointment with your new primary care provider. Print Language: Jordanian Patient Instructions: COPD"
[2024-06-27 12:14] VITALS: BP 139/83; O2SAT 97
== END 2024-06-27 13:45 | disposition home or self-care (01) ==
LOC: ED 09:50 → MS2 09:50
PROVIDERS: ADMIT Nurse Practitioner Acute Care; ATTEND Nurse Practitioner Acute Care
DX: J44.1 Chronic obstructive pulmonary disease with (acute) exacerbation; R79.89 Other specified abnormal findings of blood chemistry; I25.2 Old myocardial infarction; Z79.01 Long term (current) use of anticoagulants; J96.21 Acute and chronic respiratory failure with hypoxia; I48.21 Permanent atrial fibrillation; I45.10 Unspecified right bundle-branch block; Z66 Do not resuscitate; J44.0 Chronic obstructive pulmonary disease with (acute) lower respiratory infection; J20.9 Acute bronchitis, unspecified; Z87.891 Personal history of nicotine dependence